=== PATIENT | female | born 1935 | race Caucasian/White ===

== ENCOUNTER → 2016-08-08 | Outpatient (CLI) | payer MEDICARE ==
[~2016-08-08] MED LIST: ALLO300T2 PO; CALC600T PO; CHOL2000 PO; DIPH25TA82 PO; FURO40TA4 PO; FURO80TA3 PO; ISM60TCR PO; KCL20TCR PO; LANS15CA PO; LEVO125T6 PO; METO25TA2 PO; MTF500T PO; MTL5T PO; MULT-1029 PO; RT-ALBUTEROL SULF 2.5 MG/3 ML PRE-MIX VIAL IH ONE; SIMV20TA3 PO; SPRN25T PO; WARF2TAB6 PO
== END ==
LOC: RT 11:28
PROVIDERS: ATTEND Internal Medicine Critical Care Medicine
DX: G47.30 Sleep apnea, unspecified (principal); R06.00 Dyspnea, unspecified
CPT/HCPCS: 94060; 94640; 94726; 94729

== ENCOUNTER 2016-08-24 20:20 | Outpatient (CLI) | payer MEDICARE ==
[~2016-08-24 20:20] MED LIST changes: -RT-ALBUTEROL SULF 2.5 MG/3 ML PRE-MIX VIAL IH ONE
== END 2016-08-25 06:30 | disposition home or self-care (01) ==
LOC: SLEEP 20:20
PROVIDERS: ATTEND Internal Medicine Critical Care Medicine
DX: G47.61 Periodic limb movement disorder (principal); G47.36 Sleep related hypoventilation in conditions classified elsewhere; R06.02 Shortness of breath
CPT/HCPCS: 95810

== ENCOUNTER → 2016-09-06 | Outpatient (CLI) | payer MEDICARE ==
[2016-09-06 11:53] LABS: CREATININE SERUM 1.47 MG/DL (0.60-1.30)
--- NOTE | 2016-09-06 12:28 | Diagnostic Imaging Report ---
PROCEDURE: CT chest without contrast. TECHNIQUE: Multiple contiguous axial images were obtained through the chest without the use of intravenous contrast. INDICATION: Shortness of breath. FINDINGS: There is a breathing motion artifact in the lungs and artifacts from pacemaker along the anterior left chest wall which could obscure subtle abnormalities. No significant emphysema changes and no evidence of interstitial lung disease. No significant consolidation, mass, or suspicious nodule is evident. The heart size is significantly enlarged with no findings of pulmonary edema. No pleural or pericardial effusion. 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 The thoracic aorta is ectatic with no aneurysm. There is no mediastinal mass or significantly enlarged lymph nodes. No definite mass abutting the unopacified hilar vessels. No axillary lymphadenopathy. There is a lrabp-oy-zxhkebhn hiatal hernia seen. Sections in the upper abdomen demonstrate cholecystectomy clips. There is a clip abutting the caudate lobe of the liver. The osseous structures demonstrate prominent scoliosis of the thoracic spine to the right side. IMPRESSION: Cardiomegaly with no evidence of vascular congestion or pulmonary edema. Dictated by: Dictated on workstation # [id number]
== END ==
LOC: RAD 11:17
PROVIDERS: ATTEND Nurse Practitioner Family
DX: R09.02 Hypoxemia (principal); R06.00 Dyspnea, unspecified; R94.2 Abnormal results of pulmonary function studies; I51.7 Cardiomegaly
CPT/HCPCS: 36415; 71250; 82565; 84520

== ENCOUNTER 2016-12-27 13:00 | Outpatient (RCR) | payer MEDICARE | END 2016-12-29 | disposition home or self-care (01) | LOC: PULM 13:00 | PROVIDERS: ATTEND Nurse Practitioner Family | DX: J44.9 Chronic obstructive pulmonary disease, unspecified (principal); Z53.9 Procedure and treatment not carried out, unspecified reason | CPT/HCPCS: 99211 ==

== ENCOUNTER → 2017-01-08 | Outpatient (CLI) | payer MEDICARE ==
[2017-01-08 11:53] LABS: CREATININE SERUM 1.3 MG/DL (0.60-1.30)
--- NOTE | 2017-01-08 14:35 | Diagnostic Imaging Report ---
EXAMINATION: Bilateral lower extremity duplex venous ultrasound. TECHNIQUE: DVT protocol. Multiple sonographic images with color Doppler and waveform interrogation were performed of the lower extremity veins, bilaterally, with compression and augmentation maneuvers. INDICATION: Bilateral leg edema. FINDINGS: The lower extremity veins from the common femoral veins to below the knee veins were examined with normal color-flow, compressibility and normal waveform demonstrated. The great saphenous vein bilaterally is patent. There is a 3.4 x 1.7 x 1.3 cm Pelaez's cyst on the left side. IMPRESSION: 1. No evidence of DVT in either lower extremity. 2. Small left Pelaez's cyst. Dictated by: Dictated on workstation # [id number]
--- NOTE | 2017-01-08 16:42 | Diagnostic Imaging Report ---
PROCEDURE: CT chest without contrast. TECHNIQUE: Multiple contiguous axial images were obtained through the chest without the use of intravenous contrast. INDICATION: COPD. Shortness of breath. COMPARISON: 09/06/2016. FINDINGS: There is a small amount of fluid along the right major fissure. Mild septal thickening is also seen in the mid and lower lung zones. This could relate to mild vascular congestion. No significant consolidation, mass or suspicious nodule is seen. The heart is markedly enlarged. There are cardiac leads of left chest wall pulse generator seen. The thoracic aorta is slightly ectatic without significant aneurysmal dilatation. There is no significantly enlarged mediastinal or axillary lymphadenopathy. There is a small to moderate-sized hiatal hernia. There is a sternotomy with early osseous bridging suggested. There is no significant pleural or pericardial effusion. Sections of the upper abdomen demonstrate hepatic low-attenuation lesion measuring 2.2 x 1.2 cm similar to 09/06/2016 exam and may relate to a hepatic cyst. The osseous structures demonstrate scoliotic curvature convex to the right and mild degenerative changes. IMPRESSION: There is marked cardiomegaly with findings of slight septal thickening and minimal fluid along the right major fissure, may relate to mild vascular congestion. Dictated by: Dictated on workstation # [id number]
== END ==
LOC: RAD 11:22
PROVIDERS: ATTEND Nurse Practitioner Family
DX: I51.7 Cardiomegaly (principal); M71.22 Synovial cyst of popliteal space [Baker], left knee; R22.43 Localized swelling, mass and lump, lower limb, bilateral; R09.02 Hypoxemia; R94.2 Abnormal results of pulmonary function studies
CPT/HCPCS: 36415; 71250; 82565; 84520; 93970

== ENCOUNTER 2017-02-19 13:00 | Outpatient (RCR) | payer MEDICARE | END 2017-04-01 | disposition home or self-care (01) | LOC: PULM 13:00 | PROVIDERS: ATTEND Nurse Practitioner Family | DX: J44.9 Chronic obstructive pulmonary disease, unspecified (principal) ==

== ENCOUNTER 2017-07-08 13:16 | Outpatient (RCR) | payer MEDICARE ==
[~2017-07-08] VITALS: Ht 165.1 cm; Wt 86.2 kg
[2017-07-08 13:20] VITALS: BP 150/70
[2017-08-06 13:00] VITALS: BP 122/76
[2017-08-06 13:43] VITALS: BP 119/70
[2017-08-08 13:00] VITALS: BP 138/68
[2017-08-08 14:00] VITALS: BP 138/68
[2017-08-13 12:45] VITALS: BP 130/72
[2017-08-13 14:00] VITALS: BP 118/60
[2017-08-15 12:55] VITALS: BP 132/80
[2017-08-15 14:02] VITALS: BP 136/76
[2017-08-20 12:40] VITALS: BP 100/62
[2017-08-20 13:35] VITALS: BP 120/60
[2017-08-22 13:00] VITALS: BP 120/70
[2017-08-22 14:00] VITALS: BP 115/60
[2017-09-05 13:00] VITALS: BP 125/60
[2017-09-05 13:52] VITALS: BP 130/70
[2017-09-24 13:00] VITALS: BP 116/60
[2017-09-24 14:00] VITALS: BP 130/70
[2017-09-26 12:55] VITALS: BP 120/60
[2017-09-26 13:55] VITALS: BP 135/50
[2017-10-08 13:00] VITALS: BP 130/70
[2017-10-08 14:00] VITALS: BP 112/60
[2017-11-14 12:50] VITALS: BP 148/50
[2017-11-14 13:55] VITALS: BP 130/40
== END 2017-10-06 | disposition home or self-care (01) ==
LOC: PULM 13:16
PROVIDERS: ATTEND Nurse Practitioner Family
DX: J44.9 Chronic obstructive pulmonary disease, unspecified (principal); R94.2 Abnormal results of pulmonary function studies; R09.02 Hypoxemia; R06.02 Shortness of breath

== ENCOUNTER 2017-12-03 13:00 | Outpatient (RCR) | payer MEDICARE ==
[2017-10-10 12:45] VITALS: BP 127/80
[2017-10-10 14:00] VITALS: BP 128/60
[2017-10-15 12:30] VITALS: BP 121/60
[2017-10-15 13:40] VITALS: BP 139/70
[2017-10-17 12:40] VITALS: BP 122/60
[2017-10-17 13:40] VITALS: BP 130/60
[2017-10-22 13:00] VITALS: BP 150/60
[2017-10-22 14:00] VITALS: BP 123/60
[2017-10-24 13:00] VITALS: BP 127/67
[2017-10-24 14:00] VITALS: BP 130/70
[2017-10-29 13:00] VITALS: BP 130/68
[2017-10-29 14:00] VITALS: BP 120/60
[2017-10-31 09:00] VITALS: BP 130/62
[2017-10-31 10:00] VITALS: BP 120/60
[2017-11-12 12:40] VITALS: BP 135/70
[2017-11-12 13:27] VITALS: BP 135/70
[2017-12-05 13:00] VITALS: BP 135/60
[2017-12-05 14:00] VITALS: BP 150/60
[2017-12-10 13:00] VITALS: BP 125/80
[2017-12-10 14:00] VITALS: BP 120/50
[2017-12-17 13:00] VITALS: BP 132/64
[2017-12-17 13:55] VITALS: BP 152/41
[2017-12-19 13:08] VITALS: BP 158/51
[2017-12-19 13:55] VITALS: BP 115/40
[2017-12-24 13:00] VITALS: BP 130/55
[2017-12-24 14:00] VITALS: BP 112/62
[2017-12-26 12:45] VITALS: BP 108/70
[2017-12-26 13:47] VITALS: BP 120/60
[2017-12-31 13:00] VITALS: BP 130/62
[2017-12-31 14:00] VITALS: BP 106/64
[2018-01-02 13:00] VITALS: BP 132/58
[2018-01-02 14:00] VITALS: BP 120/68
== END 2018-01-05 | disposition home or self-care (01) ==
LOC: PULM 13:00
PROVIDERS: ATTEND Nurse Practitioner Family
DX: J44.9 Chronic obstructive pulmonary disease, unspecified (principal); R94.2 Abnormal results of pulmonary function studies; R09.02 Hypoxemia; R06.02 Shortness of breath

== ENCOUNTER 2018-01-14 08:00 | Outpatient (RCR) | payer MEDICARE ==
[2018-01-14 13:00] VITALS: BP 132/58
[2018-01-14 14:00] VITALS: BP 120/68
[2018-01-23 13:00] VITALS: BP 140/60
[2018-01-23 13:59] VITALS: BP 123/60
[2018-01-28 13:00] VITALS: BP 128/80
[2018-01-28 14:00] VITALS: BP 120/62
[2018-01-30 13:00] VITALS: BP 120/78
[2018-01-30 14:00] VITALS: BP 128/80
[2018-02-04 13:00] VITALS: BP 158/50
[2018-02-04 14:00] VITALS: BP 130/60
[2018-02-13 13:00] VITALS: BP 128/80
[2018-02-13 14:05] VITALS: BP 122/82
[2018-02-27 13:17] VITALS: BP 130/80
[2018-02-27 14:00] VITALS: BP 122/60
== END 2018-04-14 | disposition home or self-care (01) ==
LOC: PULM 08:00
PROVIDERS: ATTEND Nurse Practitioner Family
DX: J44.9 Chronic obstructive pulmonary disease, unspecified (principal); R94.2 Abnormal results of pulmonary function studies; R09.02 Hypoxemia; R06.02 Shortness of breath

== ENCOUNTER → 2018-03-24 | Outpatient (CLI) | payer MEDICARE ==
[~2018-03-24] MED LIST changes: +RT-ALBUTEROL SULF 2.5 MG/3 ML PRE-MIX VIAL INH ONE
--- NOTE | 2018-03-24 11:59 | Diagnostic Imaging Report ---
PROCEDURE: CT chest without contrast. TECHNIQUE: Multiple contiguous axial images were obtained through the chest without the use of intravenous contrast. INDICATION: Shortness of breath. Correlation is made with prior CT chest from 01/08/2017. FINDINGS: Left chest wall cardiac pacemaker is again noted. Heart remains markedly enlarged. Extensive coronary arterial calcifications are present. No definite pericardial or pleural fluid is identified. No axillary lymphadenopathy is seen. Mildly prominent lymph nodes in the mediastinum, prevascular space and paratracheal location appear similar to prior CT. There are changes of median sternotomy noted. Lungs appear to be clear apart from some minimal linear atelectasis or scarring in the bilateral lower lobes. Upper abdomen appears stable. Cyst in the right lobe of the liver appears stable. IMPRESSION: Overall stable noncontrast CT of the chest when compared with study dating back 01/08/2017. No acute features detected. Dictated by: Dictated on workstation # [id number]
== END ==
LOC: RAD 10:43
PROVIDERS: ATTEND Nurse Practitioner Family
DX: J98.4 Other disorders of lung (principal); G47.34 Idiopathic sleep related nonobstructive alveolar hypoventilation
CPT/HCPCS: 71250; 94060; 94640; 94726; 94729

== ENCOUNTER → 2018-10-24 | Outpatient (CLI) | payer MEDICARE ==
[~2018-10-24] MED LIST changes: +CATHETER FLUSH 10 ML SYR IV PRN; -RT-ALBUTEROL SULF 2.5 MG/3 ML PRE-MIX VIAL INH ONE
--- NOTE | 2018-10-24 13:51 | Diagnostic Imaging Report ---
CLINICAL INDICATION: Patient is status post fall five weeks ago. Patient has pain near right upper back and right shoulder area. EXAM: Axial CT scan of the cervical spine performed without IV contrast. Sagittal and coronal reformatted images were created. COMPARISON: None. FINDINGS: There is motion artifact which greatly limits evaluation of the C1-C2 region. There is concern for possible nondisplaced fracture involving the right C2 lateral mass inferiorly which is best seen on coronal sequence, images 13 and 14. There is also concern for nondisplaced fracture involving the transverse process of the right C3 vertebral body which does not extend into the foramen transversalis. There is no other concern for fracture or dislocation seen on this exam. There are degenerative spurs seen throughout the cervical spine and mild facet arthropathy. There is suggestion of diffuse disc bulges with fpssxxbv-ug-baziuq loss of intervertebral disc height at the C4-C5, C5-C6, and C6-C7 levels. There are bilateral uncinate spurs at the C4-C5 level which causes moderate right neural foramen narrowing and mild right neural foramen narrowing at the C5-C6 level. There is mild central canal stenosis involving the C2-C3, C3-C4, and C4-C5 levels due to posterior disc bulges and suspected herniations. There is no significant neck soft tissue abnormality. Visualized upper lung bland are clear. IMPRESSION: 1: Limited exam due to motion artifact in the region of the C2 and C3 vertebra. 2: There is concern for possible nondisplaced fracture involving the anterior lateral mass of C2 vertebra which is best seen on the coronal sequence. 3: There is concern for a nondisplaced fracture of the C3 right transverse process which does not extend into the foramen transversalis. 4: Multilevel cervical spine degenerative disease. Report faxed to PA. Brayan [phone] at 1:52 p.m. 10/24/2018/cb Dictated by: Dictated on workstation # [id number]
--- NOTE | 2018-10-24 13:52 | Diagnostic Imaging Report ---
CLINICAL INDICATION: Patient is status post fall x5 weeks ago. Patient has pain in the right upper back and right shoulder area. EXAM: Axial CT scan of the thoracic and lumbar spine performed without IV contrast. Sagittal and coronal reformations were performed. Bone and soft tissue windows were created. Auto Exposure Controls were utilized during the CT exam to meet ALARA standards for radiation dose reduction. COMPARISON: CT scan of the thoracic spine dated 03/24/2018. FINDINGS: There is a nondisplaced fracture involving the right T5 and right T6 transverse process. There is concern for nondisplaced fracture involving the medial posterior aspect of the right T4 rib with minimal cortical irregularity seen. There is concern for possible fracture at the medial aspect of the left T5 rib which is of unknown age with bony thickening seen in the region. There are old healed fractures of the medial aspect of the left T2 rib. There is old healed fracture of the posterior right T2 rib. There is right curvature of the thoracic spine. There is a roughly 50% burst fracture involving the T5 vertebra with very minimal posterior vertebral body convexity. There is no significant central canal narrowing. There is at least moderate left T6-T7 neural foramen narrowing and mild right T6-T7 neural foramen narrowing. There is no other concern for thoracic or lumbar spine fracture. There is subtle grade 1 anterolisthesis of L3 on L4 and L4 on L5. There is vertebral body spur seen throughout the thoracic and lumbar spine. There is lower lumbar spine facet arthropathy. There is moderate bilateral neural foramen narrowing at the L2-L3, L3-L4, and L4-L5 levels with facet arthropathy and diffuse disc bulges. There is prominence of the bilateral pulmonary arteries which may be seen with pulmonary congestion. There is suspected atelectasis or scarring in both lung bases. There is cardiomegaly. IMPRESSION: 1: Interval development of a roughly 50% mild burst fracture involving the T5 vertebra with no significant central canal narrowing. There is sclerosis involving this vertebra. Unknown if this is chronic or subacute. MRI of the thoracic spine would better evaluate for chronicity if this is not a known finding. 2: There are nondisplaced fractures involving the right T5 and right T6 transverse processes. 3: There is concern for nondisplaced fracture involving the medial posterior aspect of the right T4 rib with minimal cortical irregularity seen. 4: Possible fracture of unknown age involving the medial aspect of the left T5 rib. 5: There is grade 1 anterolisthesis of L3 on L4 and L4 on L5. Report faxed to AAYUSH Schmidt, at 1:52 p.m. 10/24/2018/cb Dictated by: Dictated on workstation # [id number]
--- NOTE | 2018-10-24 17:09 | Diagnostic Imaging Report ---
INDICATION: Status post fall 5 weeks ago, hurt mid back to the right side area. TECHNIQUE: The patient was administered 26.6 mCi technetium 99m MDP. Anterior and posterior whole-body planar images are obtained. CORRELATION STUDY: CT thoracic and lumbar spine 10/24/2018. FINDINGS: There is abnormal uptake about the superior aspect of thoracic spine. This likely corresponds to the recently identified T5 burst fracture. There is some nodular uptake along the right paraspinal region at the presumed costovertebral margins on the right as well particularly the T4, T5 and T6 level. Findings suspect for nondisplaced fracture near the transverse process or perhaps central posterior ribs. Less severe uptake T7, T8, T9, T10 level along the right paraspinal region as well. There is pronounced uptake which appears superimposed over the expected location of the medial left clavicle. Less severe uptake over the right sternoclavicular region. The remainder of the bone scan is otherwise unremarkable. Uptake about the kidneys with excretion into the urinary bladder. IMPRESSION: 1. Pronounced abnormal uptake at the superior thoracic spine likely corresponds to the T5 burst fracture. Additional uptake along the right paraspinal region most pronounced at the approximately T4, T5 and T6 level, may reflect uptake at perhaps transverse process or central posterior rib fractures. 2. Pronounced uptake over the medial left chest may be over the region of the medial clavicular head or first rib region. Correlation for symptoms in this area. Dictated by: Dictated on workstation # [id number]
== END ==
LOC: CARD 10:53
PROVIDERS: ATTEND Physician Assistant
DX: S22.051A Stable burst fracture of T5-T6 vertebra, initial encounter for closed fracture (principal); M43.16 Spondylolisthesis, lumbar region; M51.36 Other intervertebral disc degeneration, lumbar region; M50.31 Other cervical disc degeneration, high cervical region; W19.XXXA Unspecified fall, initial encounter
CPT/HCPCS: 72125; 72128; 72131; 78306

== ENCOUNTER 2018-12-02 11:03 | Emergency (ER) | payer MEDICARE ==
[~2018-12-02] VITALS: Ht 162.6 cm; Wt 83.9 kg
[~2018-12-02 11:03] MED LIST changes: -CATHETER FLUSH 10 ML SYR IV PRN
--- NOTE | 2018-12-02 11:20 | ED Dyspnea ---
General Stated Complaint: CANT BREATH CORRECTLY Source of Information: Patient Exam Limitations: No Limitations History of Present Illness Date Seen by Provider: Dec 02, 2018 Time Seen by Provider: 11:19 Initial Comments To ER per private vehicle with reports of shortness of breath. She awakened this morning with shortness of breath. History of COPD. She hasn't been using her breathing treatments at home as prescribed because of rib pain secondary to falls within the past couple of months. Denies any head. She is also on warfarin for a prosthetic mitral valve. She wears oxygen at 3 L [id number]-[id number]-lrtnu. She de nies fevers chills or chest pain Timing/Duration: 24 Hours Severity: Moderate Prior Episodes/Possible Cause: No Prior Episodes Associated Symptoms: Denies Symptoms Allergies and Home Medications Allergies Coded Allergies: Oxycodone (Unverified Allergy, Severe, ANAPHYLAXIS, 09/15/13) hydrocortisone (Unverified Allergy, Intermediate, 09/15/13) Home Medications Allopurinol 300 Mg Tab, 300 MG PO DAILY, (Reported) Calcium Carbonate 600 Mg Tablet, 600 MG PO DAILY, (Reported) Cholecalciferol 2,000 Unit Capsule, 2,000 UNIT PO DAILY, (Reported) Diphenhydramine Hcl 25 Mg Tablet, 25 MG PO DAILY PRN for ITCHING, (Reported) Furosemide 40 Mg Tablet, 40 MG PO SAT, SAT, , SAT, (Reported) Furosemide 80 Mg Tablet, 80 MG PO SAT, SAT, SAT, (Reported) Isosorbide Mononitrate 60 Mg Tab.sr.24h, 60 MG PO DAILY, (Reported) Lansoprazole 15 Mg Capsule.dr, 15 MG PO DAILY, (Reported) Levothyroxine Sodium 125 Mcg Tablet, 125 MCG PO DAILY, (Reported) Metformin Hcl 500 Mg Tablet, 500 MG PO BID WITH MEALS, (Reported) Metolazone 5 Mg Tab, 5 MG PO , SAT, (Reported) Metoprolol Tartrate 25 Mg Tablet, 50 MG PO BID, (Reported) TAKE 2 (25 MG) TABLETS TWICE DAILY Mu-Vits-Min // 1 Each Tablet, 1 TAB PO DAILY, (Reported) Potassium Chloride 20 Meq Tab.prt.sr, 40 MEQ PO BID ON SAT, SAT, SAT, (Reported) Potassium Chloride 20 Meq Tab.prt.sr, 20 MEQ PO BID, (Reported) TAKE 1 TABLET TWICE DAILY ON SAT, SAT, , SAT Simvastatin 20 Mg Tablet, 20 MG PO HS, (Reported) Spironolactone 25 Mg Tab, 25 MG PO DAILY, (Reported) Warfarin Sodium 2 Mg Tablet, 2 MG PO DAILY, (Reported) Patient Home Medication List Home Medication List Reviewed: Yes Review of Systems Review of Systems Constitutional: see HPI; No chills, No fever EENTM: see HPI Respiratory: see HPI, cough, short of breath Cardiovascular: no symptoms reported; No chest pain Genitourinary: no symptoms reported Musculoskeletal: no symptoms reported Skin: no symptoms reported Psychiatric/Neurological: No Symptoms Reported Endocrine: No Symptoms Reported Past Neowfdm-Vmydxq-Hkvfwz Hx Patient Social History Recent Foreign Travel: No Contact w/Someone Who Travel: No Immunizations Up To Date Date of Pneumonia Vaccine: Oct 31, 2007 Past Medical History Pneumonia Reproductive Disorders: Yes (PARTIAL HYSTERECTOMY) Abdominal Hernia, Gastroesophageal Reflux, Gastrointestinal Bleed, Diverticulosis, Hiatal Hernia, Ulcer, Gall Bladder Disease Scoliosis Hypothyroidsim, Diabetes, Non-Insulin dep Cataract Sleep Difficulties Eczema, Pruritis Family Medical History Congestive heart failure 19 FATHER Family history: Cardiovascular disease 19 FATHER Family history: Hypertension 19 FATHER Stroke 19 FATHER No Pertinent Family Hx Physical Exam Vital Signs Vital Signs - First Documented 12/02/18 11:05 Temp 98.8 Pulse 68 Resp 30 B/P (MAP) 166/80 (108) Pulse Ox 93 O2 Delivery Nasal Cannula O2 Flow Rate 3.00 Capillary Refill : Height, Weight, BMI Height: 5'5.00" Weight: 191lbs. 0.2oz. 81.486846xd; 30.0 BMI Method: General Appearance: No Apparent Distress, WD/WN, Other (dyspneic appearing) HEENT: PERRL/EOMI, TMs Normal Neck: Full Range of Motion, Normal Inspection Respiratory: No Accessory Muscle Use, No Respiratory Distress, Decreased Breath Sounds Cardiovascular: Regular Rate, Rhythm, Normal Peripheral Pulses, Systolic Murmur Gastrointestinal: Normal Bowel Sounds, Non Tender, Soft Extremity: Normal Capillary Refill, Normal Inspection Neurologic/Psychiatric: Alert, Oriented x3 Skin: Normal Color, Warm/Dry Focused Exam Lactate Level 12/02/18 11:20: Lactic Acid Level 1.35 Lactic Acid Level Laboratory Tests Test 12/02/18 11:20 Lactic Acid Level 1.35 MMOL/L (0.50-2.00) Progress/Results/Core Measures Results/Orders Lab Results Laboratory Tests Test 12/02/18 11:20 Range/Units White Blood Count 13.8 H 4.3-11.0 10^3/uL Red Blood Count 3.47 L 4.35-5.85 10^6/uL Hemoglobin 11.4 L 11.5-16.0 G/DL Hematocrit 37 35-52 % Mean Corpuscular Volume 106 H 80-99 FL Mean Corpuscular Hemoglobin 33 25-34 PG Mean Corpuscular Hemoglobin Concent 31 L 32-36 G/DL Red Cell Distribution Width 14.9 H 10.0-14.5 % Platelet Count 224 130-400 10^3/uL Mean Platelet Volume 10.1 7.4-10.4 FL Neutrophils (%) (Auto) 83 H 42-75 % Lymphocytes (%) (Auto) 6 L 12-44 % Monocytes (%) (Auto) 10 0-12 % Eosinophils (%) (Auto) 1 0-10 % Basophils (%) (Auto) 0 0-10 % Neutrophils # (Auto) 11.5 H 1.8-7.8 X 10^3 Lymphocytes # (Auto) 0.8 L 1.0-4.0 X 10^3 Monocytes # (Auto) 1.3 H 0.0-1.0 X 10^3 Eosinophils # (Auto) 0.2 0.0-0.3 10^3/uL Basophils # (Auto) 0.1 0.0-0.1 10^3/uL Prothrombin Time 26.0 H 12.2-14.7 SEC INR Comment 2.3 H 0.8-1.4 Sodium Level 142 135-145 MMOL/L Potassium Level 3.9 3.6-5.0 MMOL/L Chloride Level 96 L 98-107 MMOL/L Carbon Dioxide Level 38 H 21-32 MMOL/L Anion Gap 8 5-14 MMOL/L Blood Urea Nitrogen 33 H 7-18 MG/DL Creatinine 1.46 H 0.60-1.30 MG/DL Estimat Glomerular Filtration Rate 34 BUN/Creatinine Ratio 23 Glucose Level 123 H 70-105 MG/DL Lactic Acid Level 1.35 0.50-2.00 MMOL/L Calcium Level 9.6 8.5-10.1 MG/DL Corrected Calcium 9.5 8.5-10.1 MG/DL Total Bilirubin 2.0 H 0.1-1.0 MG/DL Aspartate Amino Transf (AST/SGOT) 18 5-34 U/L Alanine Aminotransferase (ALT/SGPT) 23 0-55 U/L Alkaline Phosphatase 76 40-136 U/L B-Type Natriuretic Peptide 404.5 H <100.0 PG/ML Total Protein 6.5 6.4-8.2 GM/DL Albumin 4.1 3.2-4.5 GM/DL My Orders Orders - PETER VÁSQUEZ [employer]TING CONTROL CLERK Cbc With Automated Diff (12/02/18 11:17) Comprehensive Metabolic Panel (12/02/18 11:17) BNP (12/02/18 11:17) Thyroid Stimulating Hormone (12/02/18 11:17) Troponin I (12/02/18 11:17) Chest 1 View, Ap/Pa Only (12/02/18 11:17) Ekg Tracing (12/02/18 11:17) Protime With Inr (12/02/18 11:17) Albuterol/Ipra Inhalation Soln (Duoneb I (12/02/18 11:30) Svn Small Volume Nebulizer (12/02/18 11:17) Blood Culture (12/02/18 11:21) Lactic Acid Analyzer (12/02/18 11:21) Manual Differential (12/02/18 11:20) Methylprednisolone Sod Succ (Solu-Medrol (12/02/18 12:00) Medications Given in ED Current Medications Medications Dose Ordered Sig/Azalea Route Start Time Stop Time Status Last Admin Dose Admin Albuterol/ Ipratropium 3 ml ONCE ONCE INH 12/02/18 11:30 12/02/18 11:31 DC 12/02/18 11:33 3 ML Methylprednisolone Sodium Succinate 125 mg ONCE ONCE IVP 12/02/18 12:00 12/02/18 12:01 DC 12/02/18 11:59 125 MG Vital Signs/I&O 12/02/18 12/02/18 11:05 11:30 Temp 98.8 Pulse 68 Resp 30 B/P (MAP) 166/80 (108) Pulse Ox 93 97 O2 Delivery Nasal Cannula Nasal Cannula O2 Flow Rate 3.00 3.00 Departure Communication (Admissions) 1151-better air movement and feeling better after the breathing treatment. Impression Primary Impression: COPD exacerbation Disposition: HOME, SELF-CARE Condition: Improved Departure-Patient Inst. Decision time for Depature: 12:12 Referrals: PATTI CALDERON DO (PCP/Family) Primary Care Physician Patient Instructions: Exacerbation of COPD Add. Discharge Instructions: 1. Use her nebulizer every 4 hours 2. Steroids as directed starting this evening 3. Antibiotics as directed starting today. Follow-up with Dr. Calderon or your lung doctor later this week. Return to ER for any worsening. Scripts Cefuroxime Axetil (Cefuroxime) 250 Mg Tablet 250 MG PO BID, #10 TAB Prov: PETER VÁSQUEZ APRN 12/02/18 Prednisone (Prednisone) 20 Mg Tab 40 MG PO DAILY, #8 TAB 0 Refills Prov: PETER VÁSQUEZ APRN 12/02/18 PETER VÁSQUEZ APRN Dec 02, 2018 11:20
[2018-12-02] MEDS ORDERED: RT-ALBUTEROL/IPRATROPIUM 3 ML (DUONEB) VIAL INH ONE (11:30)
[2018-12-02 11:36] LABS: BASOPHILS # (AUTO) 0.1 10^3/uL (0.0-0.1); BASOPHILS % (AUTO) 0 % (0-10); EOSINOPHILS # (AUTO) 0.2 10^3/uL (0.0-0.3); EOSINOPHILS % (AUTO) 1 % (0-10); HEMATOCRIT 37 % (35-52); HEMOGLOBIN 11.4 G/DL (11.5-16.0); LYMPHOCYTES # (AUTO) 0.8 X 10^3 (1.0-4.0); LYMPHOCYTES % (AUTO) 6 % (12-44); MEAN CORPUSCULAR HEMOGLOBIN 33 PG (25-34); MEAN CORPUSCULAR HGB CONC 31 G/DL (32-36); MEAN CORPUSCULAR VOLUME 106 FL (80-99); MEAN PLATELET VOLUME 10.1 FL (7.4-10.4); MONOCYTES # (AUTO) 1.3 X 10^3 (0.0-1.0); MONOCYTES % (AUTO) 10 % (0-12); NEUTROPHILS # (AUTO) 11.5 X 10^3 (1.8-7.8); NEUTROPHILS % (AUTO) 83 % (42-75); PLATELET COUNT 224 10^3/uL (130-400); RED CELL DISTRIBUTION WIDTH 14.9 % (10.0-14.5); WHITE BLOOD COUNT 13.8 10^3/uL (4.3-11.0)
[2018-12-02 11:47] LABS: INR 2.3 (0.8-1.4)
[2018-12-02 11:54] LABS: ALBUMIN 4.1 GM/DL (3.2-4.5); CALCIUM 9.6 MG/DL (8.5-10.1); CREATININE SERUM 1.46 MG/DL (0.60-1.30); POTASSIUM 3.9 MMOL/L (3.6-5.0); TOTAL PROTEIN 6.5 GM/DL (6.4-8.2)
[2018-12-02] MEDS ORDERED: methylPREDNISolone 125 MG (Solu-MEDROL) VIAL IVP ONE (12:00)
--- NOTE | 2018-12-02 12:05 | Diagnostic Imaging Report ---
PATIENT HISTORY: Shortness of air. History of COPD. TECHNIQUE: Frontal view of the chest. COMPARISON: 09/17/2013. FINDINGS: Lung volumes are large. Mild airspace opacities are seen in the right lung base and appear stable since 2013. There is cardiomegaly. Sternotomy wires are noted. There is moderate right convex curvature of the thoracic spine. The pacemaker leads appear stable. No pneumothorax or pleural effusion is seen. IMPRESSION: 1. Mild airspace opacities in right lung base appear stable since 2013, likely chronic scarring. No new consolidation is seen. 2. Findings consistent with history of COPD. Cardiomegaly. Dictated by: Dictated on workstation # [id number]
[2018-12-02 12:12] LABS: BAND NEUTROPHILS 2 %; LYMPHOCYTES % (MANUAL) 3 %; MONOCYTES % (MANUAL) 6 %; NEUTROPHILS % (MANUAL) 89 %; RBC MORPH NORMAL
[2018-12-02] MEDS ORDERED: CEFU250T80 PO (12:13)
[2018-12-02] MEDS ORDERED: PRD20T PO (12:13)
[2018-12-02 13:55] VITALS: BP 141/69
== END 2018-12-02 13:55 | disposition home or self-care (01) ==
LOC: EDUNIT# 11:03 → ER 11:04
DX: J44.1 Chronic obstructive pulmonary disease with (acute) exacerbation (principal); K21.9 Gastro-esophageal reflux disease without esophagitis; E03.9 Hypothyroidism, unspecified; E11.9 Type 2 diabetes mellitus without complications; Z87.19 Personal history of other diseases of the digestive system; Z79.01 Long term (current) use of anticoagulants; Z99.81 Dependence on supplemental oxygen; Z88.5 Allergy status to narcotic agent; Z88.8 Allergy status to other drugs, medicaments and biological substances; Z90.710 Acquired absence of both cervix and uterus; Z82.49 Family history of ischemic heart disease and other diseases of the circulatory system
CPT/HCPCS: 36415; 71045; 80053; 83605; 83880; 84443; 84484; 85007; 85027; 85610; 87040; 93005; 94640

== ENCOUNTER → 2018-12-11 | Outpatient (CLI) | payer MEDICARE ==
[~2018-12-11] MED LIST changes: +ACID1TAB5 PO; +ALBU2.5V4 NEB; +CEFU250T80 PO; +CETI10TA17 PO; +CHOL20003 PO; +CHOL4PAC3 PO; +DIPH25CA79 PO; +FLUT1DIS26 IH; +HYDR-3812 PO; +LEVO112T55 PO; +METO-333 PO; +MONT10TA24 PO; +MULT-1067 PO; +PANT40TA3 PO; +PRD10T PO; +PRD20T PO; +SITA50TA PO; +SPIR25TA5 PO; +SUCR1TAB PO; +TIOT18CA2 IH; +WARF1TAB82 PO; +[UNRECOGNIZED DRUG - REMARK] SL
--- NOTE | 2018-12-11 17:46 | Diagnostic Imaging Report ---
PROCEDURE: CT chest without contrast. TECHNIQUE: Multiple contiguous axial images were obtained through the chest without the use of intravenous contrast. Auto Exposure Controls were utilized during the CT exam to meet ALARA standards for radiation dose reduction. INDICATION: "Lung checkup". Study compared 03/24/2018. FINDINGS: Atherosclerotic vascular calcifications, cardiomegaly and pacemaker device are unchanged. There is a moderate hiatal hernia unchanged. Previous sternotomy is healed. Since the previous exam there has been development of subacute fractures on the left at the fifth and sixth levels. No pleural effusion or pneumothorax. There is cardiomegaly and vascular congestion. There is some groundglass pulmonary opacity and septal thickening. A mild degree of edema is suspected. Correlate for failure or hypervolemia. No evidence for focal pneumonia. No soft tissue density or lung mass. No findings of adenopathy. IMPRESSION: Healing subacute left rib fractures. Intact sternotomy. Cardiomegaly. Vascular congestion and probable mild interstitial edema with chronic hiatal hernia and no mass or adenopathy. Dictated by: Dictated on workstation # [id number]
== END ==
LOC: RAD 16:36
PROVIDERS: ATTEND Internal Medicine Critical Care Medicine
DX: J44.9 Chronic obstructive pulmonary disease, unspecified (principal); G47.30 Sleep apnea, unspecified; S22.32XD Fracture of one rib, left side, subsequent encounter for fracture with routine healing; K44.9 Diaphragmatic hernia without obstruction or gangrene; R09.89 Other specified symptoms and signs involving the circulatory and respiratory systems
CPT/HCPCS: 71250

== ENCOUNTER 2018-12-15 12:11 | Inpatient (IN) | payer MEDICARE ==
[~2018-12-15] VITALS: Ht 162.6 cm; Wt 81.2 kg
[~2018-12-15 12:11] MED LIST changes: -ACID1TAB5 PO; -ALBU2.5V4 NEB; -CETI10TA17 PO; -CHOL20003 PO; -CHOL4PAC3 PO; -DIPH25CA79 PO; -FLUT1DIS26 IH; -HYDR-3812 PO; -LEVO112T55 PO; -LEVO250T46 PO; -METO-333 PO; -MONT10TA24 PO; -MULT-1067 PO; -PANT40TA3 PO; -PRD10T PO; -SERT25TA PO; -SITA50TA PO; -SPIR25TA5 PO; -SUCR1TAB PO; -TIOT18CA2 IH; -WARF1TAB82 PO; -[UNRECOGNIZED DRUG - REMARK] SL
[2018-12-15 13:01] VITALS: BP 149/77
--- NOTE | 2018-12-15 13:02 | NUR ---
Dr Cook notified of cardiology consult
[2018-12-15 13:10] LABS: BASOPHILS % (AUTO) 0 % (0-10); EOSINOPHILS # (AUTO) 0.1 10^3/uL (0.0-0.3); EOSINOPHILS % (AUTO) 1 % (0-10); HEMATOCRIT 33 % (35-52); HEMOGLOBIN 10.4 G/DL (11.5-16.0); LYMPHOCYTES # (AUTO) 0.3 X 10^3 (1.0-4.0); LYMPHOCYTES % (AUTO) 2 % (12-44); MEAN CORPUSCULAR HEMOGLOBIN 33 PG (25-34); MEAN CORPUSCULAR HGB CONC 32 G/DL (32-36); MEAN CORPUSCULAR VOLUME 104 FL (80-99); MONOCYTES # (AUTO) 0.7 X 10^3 (0.0-1.0); MONOCYTES % (AUTO) 5 % (0-12); NEUTROPHILS % (AUTO) 93 % (42-75); PLATELET COUNT 206 10^3/uL (130-400); RED CELL DISTRIBUTION WIDTH 14.5 % (10.0-14.5); WHITE BLOOD COUNT 15.1 10^3/uL (4.3-11.0)
[2018-12-15 13:11] LABS: ABG BASE EXCESS 9.4 MMOL/L (-2.5-2.5); ABG OXYGEN SATURATION 96 % (94-100); ABG PCO2 42 MMHG (35-45); ABG PH 7.51 (7.37-7.43); ABG PO2 72 MMHG (79-93); ABG TCO2 34.4 MMOL/L (21.0-31.0)
[2018-12-15 13:14] LABS: ALLENS TEST YES-POS; INSPIRED O2 3.5L; PATIENT TEMP 36.7; VENTILATOR NO
--- NOTE | 2018-12-15 13:21 | Diagnostic Imaging Report ---
INDICATION: CHF. TIME OF EXAM: 1:10 p.m. COMPARISON: Correlation is made with prior study from 12/02/2018. FINDINGS: The heart is enlarged but stable. There are changes of median sternotomy. Cardiac pacemaker remains in place. Congestive changes have developed in both lungs when compared with prior study. Central vascularity has increased in prominence. Interstitial markings in the bases are more prominent. No effusion or pneumothorax is seen. IMPRESSION: Development of congestive changes when compared with prior study from 12/02/2018. Dictated by: Dictated on workstation # [id number]
[2018-12-15 13:27] LABS: ALBUMIN 3.6 GM/DL (3.2-4.5); BILIRUBIN,TOTAL 1.8 MG/DL (0.1-1.0); CALCIUM 9.5 MG/DL (8.5-10.1); CREATININE SERUM 1.15 MG/DL (0.60-1.30); MAGNESIUM 2.1 MG/DL (1.6-2.4); PHOSPHORUS 2.8 MG/DL (2.3-4.7); POTASSIUM 3.7 MMOL/L (3.6-5.0); TOTAL PROTEIN 6.1 GM/DL (6.4-8.2)
[2018-12-15 13:36] LABS: BAND NEUTROPHILS 6 %; BASOPHILS % (MANUAL) 0 %; EOSINOPHILS % (MANUAL) 1 %; LYMPHOCYTES % (MANUAL) 1 %; MONOCYTES % (MANUAL) 7 %; NEUTROPHILS % (MANUAL) 85 %
[2018-12-15 13:37] LABS: POLYCHROMASIA SLIGHT
--- NOTE | 2018-12-15 13:37 | NUR ---
PAIGE ELLISON admitted to room 402-1, with an admitting diagnosis of CHF exacterbation snf hypoxia, on 12/15/[address] martinez's office/ direct admit, accompanied by family and staff.PAIGE ELLISON introduced to surroundings, call light, bed controls, phone, TV, temperature control, lights, meal times, smoking policy, visitor policy, side rail policy, bathrooms and showers.PAIGE ELLISON verbalizes understanding that [facility] is not responsible for the loss or damage to any personal effects or valuables that are kept in the patients posession during their hospitalization. PAIGE ELLISON verbalizes understanding of Interdisciplinary Patient Education. Patient and/or family were informed about the Rapid Response Team and its purpose.
[2018-12-15 13:38] LABS: TOXIC GRANULATION/VACUOLAZATIO 1+
[2018-12-15 13:41] LABS: INR 2.5 (0.8-1.4); PROTHROMBIN TIME PATIENT 28.5 SEC (12.2-14.7)
--- NOTE | 2018-12-15 13:56 | Physical Therapy Evaluation ---
PT Evaluation-General Medical Diagnosis Admission Date Dec 15, 2018 at 12:34 Medical Diagnosis: CHF exacerbation Onset Date: Dec 15, 2018 Therapy Diagnosis Therapy Diagnosis: debility/weakness Height/Weight Height (Feet): 5 Height (Inches): 4.00 Weight (Pounds): 185 Weight (Ounces): 0.2 Precautions Precautions/Isolations: Fall Prevention, Standard Precautions Weight Bear Status Right Lower Extremity: Right Full Weight Bearing Left Lower Extremity: Left Full Weight Bearing Referral Physician: Kane Reason for Referral: Evaluation/Treatment Medical History Pertinent Medical History: COPD, DM, Hypothroidism Current History direct admit from Dr. Sandra's office secondary to CHF Reviewed History: Yes Social History Home: Assisted Living Entry Into Home: Level Entry Prior/Core FIM Prior Level of Function Therapy Code Descriptions/Definitions Functional [place] Measure: 0=Not Assessed/NA 4=Minimal Assistance 1=Total Assistance 5=Supervision or Setup 2=Maximal Assistance 6=Modified [place] 3=Moderate Assistance 7=Complete [place] Therapy Quality Codes: 6 Independent with activity with or without an assistive device 5 Patient requires set up or clean up by helper. Patient completes activity by themselves 4 Supervision or touching assist (CGA). [place] provide cues , steadying assist 3 The helper provides less than half the effort to complete the activity 2 The helper provides more than half the effort to complete the activity 1 Dependent. The helper does all the effort to complete an activity 7 Patient refused to complete or attempt activity 9 The patient did not perform the activity before the current illness or injury 88 Not attempted due to Medical conditions or safety concerns Functional Abilities and Goals: Independent: Patient completed the activities by him/herself, with or without an assistive device, with no assistance from a helper. Needed Some Help: Patient needed partial assistance from another person to complete activities. Dependent: A helper completed the activities for the patient. Unknown: Not Applicable: Bed Mobility: 6 Transfers (B,C,W/C) (FIM): 6 Gait: 6 Indoor Mobility (Ambulation): Independent Stairs: Not Applicalbe Prior Devices Use: Walker PT Evaluation-Current Subjective Patient reports she is having a difficulty breathing. Reluctantly agrees to PT. Pain Numeric Pain Scale: 0-No Pain Location: No Pain Reported Objective Patient Orientation: Normal For Age Problem Solving: Fair Attachments: Oxygen (4L O2 NC) ROM/Strength ROM Lower Extremities bilateral LE WFL Strength Lower Extremities 4-/5 grossly bilateral LE Integumentary/Posture Integumentary refer to nursing notes Bowel Incontinence: No Bladder Incontinence: No Posture scoliosis Neuromuscular (Tone, Coordination, Reflexes) grossly intact Sensory Vision: Wears Glasses Hearing: Functional Sensation Right Lower Extremit: Impaired Sensation Left Lower Extremity: Impaired Transfers Therapy Code Descriptions/Definitions Functional [place] Measure: 0=Not Assessed/NA 4=Minimal Assistance 1=Total Assistance 5=Supervision or Setup 2=Maximal Assistance 6=Modified [place] 3=Moderate Assistance 7=Complete [place] Transfers (B, C, W/C) (FIM): 5 Scootin Rollin Supine to/from Sit: 5 Sit to/from Stand: 5 Gait Mode of Locomotion: Walk Anticipated Mode of Locomotion: Walk Gait (FIM): 2 Distance (FIM): 0=225-29 ft Distance: 50' Gait Level of Assist: 5 Gait Assistive Device: FWW Comments/Gait Description steady gait sequence with FWW Balance Sitting Static: Normal Sitting Dynamic: Normal Standing Static: Normal Standing Dynamic: Normal Assessment/Needs Noted increase SOA with minimal activity. 83 y.o. female, will be seen by skilled PT to address functional mobility/pulmonary function to improve current LOF to safely return to AL at maximum LOF. Patient has history of multiple falls from O2 tubing and LOB prior to AL admit. Rehab Potential: Fair PT Quality Improvement Consultant Goals Mcc Goals PT Quality Improvement Consultant Goals Time Frame: Dec 24, 2018 Transfers (B,C,W/C) (FIM): 6 Gait (FIM): 6 Gait distance (FIM): 3=150 ft Distance: 150' Gait Level of Assist: 6 Gait Assistive Device: FWW PT Plan Problem List Problem List: Activity Tolerance Treatment/Plan Treatment Plan: Continue Plan of Care Treatment Plan: Bed Mobility, Education, Functional Activity Autumn, Functional Strength, Gait, Safety, Therapeutic Exercise, Transfers Treatment Duration: Dec 24, 2018 Frequency: 6 times per week Estimated Hrs Per Day: .25 hour per day Patient and/or Family Agrees t: Yes Discharge Recommendations Therapy Discharge Recommendati: Assisted Living Time/GCodes Time In: 1325 Time Out: 1342 Total Billed Treatment Time: 17 Total Billed Treatment 1 visit EVModC 17 min PHILLIP STONE PT Dec 15, 2018 13:56
[2018-12-15] MEDS ORDERED: RT-ALBUTEROL/IPRATROPIUM 3 ML (DUONEB) VIAL IH PRN (14:00)
[2018-12-15] MEDS ORDERED: CATHETER FLUSH 10 ML SYR IV PRN (14:00)
[2018-12-15] MEDS: KCL 20 MEQ TAB (K-DUR) PO SCH (14:34)
[2018-12-15] MEDS: FUROSEMIDE 40 MG/4 ML INJ (LASIX) IV SCH (14:34)
[2018-12-15] MEDS: ENOXAPARIN 40 MG/0.4 ML (LOVENOX) SYR SC SCH (14:34)
[2018-12-15] MEDS: CATHETER FLUSH 10 ML SYR IV SCH ×2 (14:35→20:41)
[2018-12-15] MEDS: RT-ALBUTEROL/IPRATROPIUM 3 ML (DUONEB) VIAL IH SCH ×3 (15:09→22:08)
[2018-12-15 15:52] VITALS: BP 135/71
[2018-12-15] MEDS ORDERED: CEFU250T80 PO (16:31)
[2018-12-15] MEDS ORDERED: LEVO112T55 PO (16:31)
[2018-12-15] MEDS ORDERED: CHOL20003 PO (16:31)
[2018-12-15] MEDS ORDERED: DIPH25CA79 PO (16:31)
[2018-12-15] MEDS ORDERED: ACID1TAB5 PO (16:31)
[2018-12-15] MEDS ORDERED: ALBU2.5V4 NEB (16:31)
[2018-12-15] MEDS ORDERED: TIOT18CA2 IH (16:31)
[2018-12-15] MEDS ORDERED: FURO80TA3 PO (16:31)
[2018-12-15] MEDS ORDERED: FLUT1DIS26 IH (16:31)
[2018-12-15] MEDS ORDERED: CETI10TA17 PO (16:31)
[2018-12-15] MEDS ORDERED: SPIR25TA5 PO (16:31)
[2018-12-15] MEDS ORDERED: MULT-1067 PO (16:31)
[2018-12-15] MEDS ORDERED: SUCR1TAB PO (16:32)
[2018-12-15] MEDS ORDERED: [UNRECOGNIZED DRUG - REMARK] SL (16:32)
[2018-12-15] MEDS ORDERED: WARF1TAB82 PO ×2 (16:32)
[2018-12-15] MEDS ORDERED: METO-333 PO (16:32)
[2018-12-15] MEDS ORDERED: MONT10TA24 PO (16:32)
[2018-12-15] MEDS ORDERED: SITA50TA PO (16:32)
[2018-12-15] MEDS ORDERED: HYDR-3812 PO (16:32)
[2018-12-15] MEDS ORDERED: PANT40TA3 PO (16:32)
[2018-12-15] MEDS ORDERED: CHOL4PAC3 PO (16:32)
[2018-12-15] MEDS ORDERED: PRD10T PO (16:32)
--- NOTE | 2018-12-15 16:36 | NUR ---
UPDATED MED REC WITH MAR FROM [facility].
--- NOTE | 2018-12-15 17:42 | Consultation-Cardiology ---
HPI-Cardiology Cardiology Consultation: Date of Consultation 12/15/18 Date of Admission Attending Physician America Middleton MD Admitting Physician Jesse Calderon DO Consulting Physician Salomon COOK MD HPI: Time Seen by a Provider: 16:00 Chief Complaint: Shortness of breath this is a 83-year-old lady who I have seen in the office. She presents with worsening shortness of breath. She has history of mechanical mitral valve replacement and is on Coumadin. She also has a dual chamber permanent pacemaker implantation. Her pacemaker is a Medtronic pacemaker. 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 Congestive heart failure. atrial fibrillation on EKG 03/22/2017. stage III chronic kidney disease, TIA. she takes Lasix 40 mg daily, Zaroxolyn 5 mg when necessary, metoprolol 25 mg 2 tablets twice daily, Aldactone 25 mg daily, warfarin. Her last device interrogation was 06/23/2018 which showed a battery longevity of 6.5 years. Atrial impedance 402 ohms, RV impedance 430 ohms, atrial tachycardia/atrial fibrillation burden 29.8 percent. Ventricular pacing 95 percent. Atrial pacing 56 percent. Echocardiogram done on 02/27/2017 showed LVEF of 50 percent with restrictive diastolic pattern. Normal functioning mitral valve prosthesis. Mild aortic stenosis. Elevated PA pressure of 6873 mmHg. carotid ultrasound done 03/07/2015 shows no significant atherosclerotic disease in bilateral carotid system. Review of Systems-Cardiology Review of Systems Constitutional: As described under HPI; No As described under HPI, No no symptoms reported, No chills, No fever, No lightheadedness Eyes: No As described under HPI, No no symptoms reported, No blindness, No blurred vision, No contact lenses, No drainage, No decreased acuity, No foreign body sensation, No pain, No vision change Ears/Nose/Throat: No As described under HPI, No no symptoms reported, No chronic hearing loss, No ear discharge, No ear pain, No nasal drainage, No ulcerations Respiratory: No no symptoms reported; As described under HPI; No As described under HPI, No cough, No orthopnea; shortness of breath; No SOB with excertion Cardiovascular: No no symptoms reported; As described under HPI; No As described under HPI, No chest pain; edema; No irregular heart rate, No lightheadedness, No palpitations Gastrointestinal: No no symptoms reported, No As described under HPI, No abdomen distended, No abdominal pain, No blood streaked bowels, No constipation, No diarrhea, No nausea, No vomiting, No stool coloration changes Genitourinary: No As described under HPI, No burning, No dysuria, No discharge, No frequency, No flank pain, No hematuria, No urgency : Yes : No Skin: No rash, No skin related problems, No ulcerations Psychiatric/Neurological: No anxiety, No depression, No seizure, No focal weakness, No syncope Hematologic: No bleeding abnormalities ZOR-Mqijjv-Ppzsrj Hx Patient Social History Alcohol Use: Denies Use Recreational Drug Use: No Recent Foreign Travel: No Recent Infectious Disease Expo: No Physical Abuse Screen: No Sexual Abuse: No Immunizations Up To Date Date of Pneumonia Vaccine: Oct 31, 2007 Past Medical History PMH As described under Assessment. Family Medical History Family History: Congestive heart failure 19 FATHER Family history: Cardiovascular disease 19 FATHER Family history: Hypertension 19 FATHER Stroke 19 FATHER Allergies and Home Medications Allergies Coded Allergies: oxycodone (Unverified Allergy, Severe, ANAPHYLAXIS, 09/15/13) hydrocortisone (Unverified Allergy, Intermediate, 09/15/13) Home Medications Albuterol Sulfate 2.5 Mg/3 Ml Vial.neb, 2.5 MG NEB Q4H PRN for SHORTNESS OF BREATH, (Reported) Cefuroxime Axetil 250 Mg Tablet, 250 MG PO BID, (Reported) 5 DAY SUPPLY START DATE 12-12-18 PM DOSE Cetirizine HCl 10 Mg Tablet, 10 MG PO DAILY, (Reported) Cholecalciferol (Vitamin D3) 2,000 Unit Capsule, 2,000 UNIT PO DAILY, (Reported) Cholestyramine/Aspartame 4 Gm Powd.pack, 4 GM PO BID, (Reported) Diphenhydramine HCl 25 Mg Capsule, 25 MG PO Q4H PRN for ALLERGIES, (Reported) Fluticasone/Salmeterol 1 Each Blst.w.dev, 1 PUFF IH BID, (Reported) Furosemide 80 Mg Tablet, 40 MG PO DAILY, (Reported) TAKES 1/2 (80MG) TABLET Hydrocodone/Acetaminophen 1 Each Tablet, 1 TAB PO Q4H PRN for PAIN-MODERATE, (Reported) L. Acidophilus/Bulgaricus 1 Each Tab.chew, 1 TAB.CHEW PO QID, (Reported) 5 DAY THERAPY START DATE 12-12-18 PM DOSE Levothyroxine Sodium 112 Mcg Tablet, 112 MCG PO DAILY, (Reported) Metoprolol Tartrate 25 Mg Tablet, 50 MG PO BID, (Reported) TAKES 2 (25MG) TABLETS Montelukast Sodium 10 Mg Tablet, 10 MG PO HS, (Reported) Multivitamin/Iron/Folic Acid 1 Each Tablet, 0.5 TAB PO BID, (Reported) Pantoprazole Sodium 40 Mg Tablet.dr, 40 MG PO DAILY, (Reported) Prednisone 10 Mg Tab, 10 MG PO DAILY, (Reported) Sitagliptin Phosphate 50 Mg Tablet, 50 MG PO DAILY, (Reported) Spironolactone 25 Mg Tablet, 25 MG PO DAILY, (Reported) Sucralfate 1 Gm Tablet, 1 GM PO QID PRN for GASTRITIS, (Reported) Tiotropium [place] 1 Inh Aerp, 1 CAP IH DAILY, (Reported) Warfarin Sodium 1 Mg Tablet, 2 MG PO SuMoTuWeThSa, (Reported) TAKES 2 (1MG) TABLETS Warfarin Sodium 1 Mg Tablet, 1 MG PO Fr, (Reported) [Otc Restless Legs] , 2-3 TAB SL Q4H PRN for RESTLESS LEGS, (Reported) UP TO 6 TIMES DAILY Patient Home Medication List Home Medication List Reviewed: Yes Physical Exam-Cardiology Physical Exam Vital Signs/I&O 12/15/18 12/15/18 12/15/18 12/15/18 13:01 14:22 14:53 15:09 Temp 36.7 Pulse 85 85 Resp 20 B/P (MAP) 149/77 Pulse Ox 95 92 O2 Delivery Nasal Cannula Room Air Nasal Cannula O2 Flow Rate 4.00 3.00 12/15/18 15:52 Temp 36.7 Pulse 96 Resp 22 B/P (MAP) 135/71 Pulse Ox 91 O2 Delivery Nasal Cannula O2 Flow Rate 4.00 Capillary Refill : Constitutional: appears stated age, AAO x 3; No apparent distress; well- developed, well-nourished HEENT: PERRL; No discharge; hearing is well preserved, oral hygience is good; N o ulceration, No xanthelasmas are seen Neck: No carotid bruit; carotid pulses are 2 + bilaterally Respiratory: chest is bilaterally symmetric, lungs clear to auscultation Cardiovascular: regular rate-rhythm, S1 and S2, systolic murmur Gastrointestinal: soft, audible bowel sounds; No spleenomegaly Rectal: deferred Extremities: pedal edema; No clubbing, No cyanosis, No significant edema Neurologic/Psychiatric: no motor/sensory deficits, alert, normal mood/affect, oriented x 3, power is 5/5 both on sides Skin: normal color; No rash, No ulcerations Data Review Labs Laboratory Tests 12/15/18 13:00: White Blood Count 15.1H, Red Blood Count 3.17L, Hemoglobin 10.4L, Hematocrit 33L , Mean Corpuscular Volume 104H, Mean Corpuscular Hemoglobin 33, Mean Corpuscular Hemoglobin Concent 32, Red Cell Distribution Width 14.5, Platelet Count 206, Mean Platelet Volume 10.0, Neutrophils (%) (Auto) 93H, Lymphocytes (%) (Auto) 2L , Monocytes (%) (Auto) 5, Eosinophils (%) (Auto) 1, Basophils (%) (Auto) 0, Neutrophils # (Auto) 14.0H, Lymphocytes # (Auto) 0.3L, Monocytes # (Auto) 0.7, Eosinophils # (Auto) 0.1, Basophils # (Auto) 0.0, Neutrophils % (Manual) 85, Lymphocytes % (Manual) 1, Monocytes % (Manual) 7, Eosinophils % (Manual) 1, Basophils % (Manual) 0, Band Neutrophils 6, Toxic Granulation 1+, Polychromasia SLIGHT, Macrocytosis SLIGHT, Sodium Level 139, Potassium Level 3.7, Chloride Level 97L, Carbon Dioxide Level 33H, Anion Gap 9, Blood Urea Nitrogen 30H, Creatinine 1.15, Estimat Glomerular Filtration Rate 45, BUN/Creatinine Ratio 26, Glucose Level 121H, Calcium Level 9.5, Corrected Calcium 9.8, Phosphorus Level 2.8, Magnesium Level 2.1, Total Bilirubin 1.8H, Aspartate Amino Transf (AST/SGOT) 22, Alanine Aminotransferase (ALT/SGPT) 23, Alkaline Phosphatase 60, Troponin I 0.034H, B-Type Natriuretic Peptide 339.4H, Total Protein 6.1L, Albumin 3.6, Thyroid Stimulating Hormone (TSH) 0.73 12/15/18 13:02: Blood Gas Puncture Site L [place], Blood Gas Patient Temperature 36.7, Arterial Blood pH 7.51H, Arterial Blood Partial Pressure CO2 42, Arterial Blood Partial Pressure O2 72L, Arterial Blood HCO3 33H, Arterial Blood Total CO2 34.4H, Arterial Blood Oxygen Saturation 96, Arterial Blood Base Excess 9.4H, Jose Test YES-POS, Blood Gas Ventilator Setting NO, Blood Gas Inspired Oxygen 3.5L 12/15/18 13:21: Prothrombin Time 28.5H, INR Comment 2.5H, Activated Partial Thromboplast Time 45H, Lactic Acid Level 0.90 12/15/18 16:04: Glucometer 161H A/P-Cardiology Assessment/Admission Diagnosis Acute congestive heart failure, COPD, Mechanical mitral valve on Coumadin, History of TIA, Plan Chronic systolic/diastolic congestive heart failure: Continue diuretics. Follow echocardiogram. Mechanical mitral valve: Last echocardiogram done in 2016 showed normally functioning mitral valve prosthesis. Continue Coumadin with an INR target of 3.0. Chronic atrial fibrillation: Patient is already on Coumadin. History of hypertrophic obstructive cardiomyopathy, status post myectomy. No active issues. Stage III chronic kidney disease, History of TIA. Already on Coumadin. Chronic oral anticoagulation with warfarin. COPD, defer to Dr. Sandra. Thank you for your consultation. Please call me if you have any questions. Malika Cook MD, FACP, FACC, FSCAI, FHRS, CCDS Interventional Cardiology Cardiac Electrophysiology Vascular Medicine and Endovascular Interventions Clinical Quality Measures DVT/VTE Risk/Contraindication: Risk Factor Score Per Nursin RFS Level Per Nursing on Admit: 4+=Very High Salomon COOK MD Dec 15, 2018 17:42
[2018-12-15] MEDS ORDERED: BISACODYL 10 MG SUPP (DULCOLAX) PR PRN (18:45)
[2018-12-15] MEDS ORDERED: POLYETHYLENE GLYCOL 17 GM (MIRALAX) PACK PO PRN (18:45)
[2018-12-15] MEDS ORDERED: diphenhydrAMINE 25 MG TAB (BENADRYL) PO PRN (18:45)
[2018-12-15 19:45] VITALS: BP 151/76
[2018-12-15] MEDS: MONTELUKAST 10 MG (SINGULAIR) TAB PO SCH (20:36)
[2018-12-15] MEDS: CEFDINIR 300 MG (OMNICEF) CAP PO SCH (20:36)
[2018-12-15] MEDS: SENNA W/DOCUSATE (SENOKOT S) TABLET PO SCH (20:37)
[2018-12-15] MEDS: DOCUSATE SODIUM 100 MG (COLACE) CAP PO SCH (20:37)
[2018-12-15] MEDS: MELATONIN 3 MG TABLET PO PRN (20:38)
[2018-12-15] MEDS: meTOprolol TARTRATE 50 MG (LOPRESSOR) TAB PO SCH (20:38)
[2018-12-15] MEDS: rOPINIRole 0.25 MG (REQUIP) TAB PO PRN (20:39)
--- NOTE | 2018-12-15 20:49 | History & Physical-Hospitalist ---
History of Present Illness HPI/Chief Complaint Winnie Marquez is an 83 year old female with PMH HTN, HLD, COPD, AFib, mechanical mitral valve on coumadin, HOCM s/p myectomy, hypothyroidism, who presented with shortness of breath. She has been slowly becoming more short of breath. She uses oxygen at home and has had increased need a baseline. She feels short of breath with no activity. She denies orthopnea and PND. She denies chest pain. She denies weight gain. She feels like her clothes are fitting of the normally do. She has had an increase in lower extremity edema. She reports that she has been taking her medications as prescribed. She denies any fevers, chills, or cough. She is currently being treated for a urinary tract infection. She has been taking her Coumadin as directed. She has testing strips for her INR at home and reports that it has been within the therapeutic range. She has a history of a mitral valve replacement with a mechanical valve and she reports her goal to be 3 to 3.5. Source: patient Exam Limitations: no limitations Date Seen 12/15/18 Time Seen by a Provider: 15:00 Attending Physician Luis Antonio Ulloa MD PCP Jesse Calderon DO Referring Physician Date of Admission Dec 15, 2018 at 12:34 Home Medications & Allergies Home Medications Reviewed patient Home Medication Reconciliation performed by pharmacy medication reconciliations natural resources technician and/or nursing. Patients Allergies have been reviewed. Allergies Allergies Coded Allergies oxycodone (Unverified Allergy, Severe, ANAPHYLAXIS, 09/15/13) hydrocortisone (Unverified Allergy, Intermediate, 09/15/13) Past Rcpaldo-Eqefvq-Czmnel Hx Past Med/Social Hx: Reviewed Nursing Past Med/Soc Hx Patient Social History Alcohol Use: Denies Use Recreational Drug Use: No Physical Abuse Screen: No Sexual Abuse: No Recent Foreign Travel: No Contact w/other who traveled: No Recent Hopitalizations: No Recent Infectious Disease Expo: No Immunizations Up To Date Date of Pneumonia Vaccine: Oct 31, 2007 Seasonal Allergies Seasonal Allergies: No Past Medical History Surgeries: Abdominal, Cardiac, Gallbladder, Hysterectomy Cardiac: High Cholesterol, Hypertension, Valvular Heart Disease Reproductive: Yes (PARTIAL HYSTERECTOMY) Hysterectomy Gastrointestinal: Abdominal Hernia, Gastroesophageal Reflux, Gastrointestinal Bleed, Diverticulosis, Hiatal Hernia, Ulcer, Gall Bladder Disease Musculoskeletal: Scoliosis Endocrine: Hypothyroidsim, Diabetes, Non-Insulin dep HEENT: Cataract Psychosocial: Sleep Difficulties Skin/Integumentary: Eczema, Pruritis Family History Congestive heart failure 19 FATHER Family history: Cardiovascular disease 19 FATHER Family history: Hypertension 19 FATHER Stroke 19 FATHER No Pertinent Family Hx Review of Systems Constitutional: weakness EENTM: no symptoms reported Respiratory: short of breath Cardiovascular: edema Gastrointestinal: no symptoms reported Genitourinary: no symptoms reported Musculoskeletal: no symptoms reported Skin: no symptoms reported Psychiatric/Neurological: No Symptoms Reported Physical Exam Physical Exam Vital Signs Vital Signs - First Documented 12/15/18 13:01 Temp 36.7 Pulse 85 Resp 20 B/P (MAP) 149/77 Pulse Ox 95 O2 Delivery Nasal Cannula O2 Flow Rate 4.00 Capillary Refill : Height, Weight, BMI Height: 5'4.00" Weight: 185lbs. 0.2oz. [id number]; 32.26 BMI Method:Stated General Appearance: No Apparent Distress, WD/WN HEENT: PERRL/EOMI Neck: Normal Inspection, Supple Respiratory: No Accessory Muscle Use, No Respiratory Distress, Crackles (Bibasilar and left lower lobe) Cardiovascular: Other (Mechanical heart sounds, regular rate and rhythm) Gastrointestinal: Normal Bowel Sounds, Non Tender, Soft Extremity: Non Tender, Pedal Edema Neurologic/Psychiatric: Alert, Oriented x3, No Motor/Sensory Deficits Skin: Normal Color, Warm/Dry Lymphatic: No Adenopathy Results Results/Procedures Labs Laboratory Tests 12/15/18 13:00 Patient resulted labs reviewed. Imaging: Reviewed Imaging Report Assessment/Plan Admission Diagnosis Acute exacerbation of congestive heart failure Admission Status: Inpatient Order (span 2 midnights) Reason for Inpatient Admission: Hypertension Hyperlipidemia Mitral valve replacement on Coumadin Hypothyroidism COPD Assessment and Plan Acute on chronic congestive heart failure Acute on chronic hypoxic respiratory failure Obtain TTE Daily weights Fluid restriction 2 L Low-sodium diet FRANKLIN darnell ordered Lasix 80 mg IV daily Cardiology and pulmonology consulted, appreciate recommendations Oxygen supplementation as needed to maintain O2 saturation between 88-92 percent COPD without acute exacerbation MAT protocol Continue Advair Continue montelukast Continue prednisone Hypothyroidism Continue thyroid supplementation Mitral valve replacement on Coumadin Continue Coumadin INR 2.5 on admission Continue to monitor INR UTI Continue cefuroxime Hypertension Hyperlipidemia Continue home meds Diagnosis/Problems Diagnosis/Problems (1) Acute exacerbation of congestive heart failure Status: Acute (2) Acute on chronic respiratory failure with hypoxemia Status: Acute (3) H/O mitral valve replacement with mechanical valve Status: Chronic (4) Anticoagulated on Coumadin Status: Chronic (5) Hypertension Status: Chronic (6) Hyperlipidemia Status: Chronic (7) Hypothyroidism Status: Chronic (8) UTI (urinary tract infection) Status: Acute (9) COPD without exacerbation Status: Chronic Clinical Quality Measures DVT/VTE Risk/Contraindication: Risk Factor Score Per Nursin RFS Level Per Nursing on Admit: 4+=Very High LUIS ANTONIO ULLOA MD Dec 15, 2018 20:49
[2018-12-15 21:35] LABS: BILIRUBIN,URINE NEGATIVE (NEGATIVE); CLARITY,URINE CLEAR; COLOR,URINE YELLOW; GLUCOSE, URINE (UA) NEGATIVE (NEGATIVE); KETONES,URINE NEGATIVE (NEGATIVE); LEUKOCYTE ESTERASE ,URINE 1+ (NEGATIVE); NITRITE,URINE NEGATIVE (NEGATIVE); PH,URINE 6 (5-9); PROTEIN,URINE NEGATIVE (NEGATIVE); UROBILINOGEN,URINE NORMAL (NORMAL)
[2018-12-15 21:48] LABS: BACTERIA,URINE MODERATE /HPF; HYALINE CASTS, URINE RARE /LPF; SQUAMOUS EPITHELIAL CELL,UR RARE /HPF
[2018-12-15] MEDS: RT-ADVAIR HFA 115/21 MCG PER PUFF IH SCH (22:10)
[2018-12-16] VITALS (7 sets, daily range): BP systolic 130–151; BP diastolic 68–76
[2018-12-16] MEDS: RT-ALBUTEROL/IPRATROPIUM 3 ML (DUONEB) VIAL IH SCH ×6 (02:10→21:54)
[2018-12-16 05:17] LABS: BASOPHILS % (AUTO) 0 % (0-10); EOSINOPHILS # (AUTO) 0.2 10^3/uL (0.0-0.3); EOSINOPHILS % (AUTO) 2 % (0-10); HEMATOCRIT 34 % (35-52); HEMOGLOBIN 10.6 G/DL (11.5-16.0); LYMPHOCYTES # (AUTO) 0.4 X 10^3 (1.0-4.0); LYMPHOCYTES % (AUTO) 4 % (12-44); MEAN CORPUSCULAR HEMOGLOBIN 32 PG (25-34); MEAN CORPUSCULAR HGB CONC 31 G/DL (32-36); MEAN CORPUSCULAR VOLUME 103 FL (80-99); MEAN PLATELET VOLUME 10.6 FL (7.4-10.4); MONOCYTES # (AUTO) 0.5 X 10^3 (0.0-1.0); MONOCYTES % (AUTO) 5 % (0-12); NEUTROPHILS # (AUTO) 9.4 X 10^3 (1.8-7.8); NEUTROPHILS % (AUTO) 90 % (42-75); PLATELET COUNT 204 10^3/uL (130-400); RED CELL DISTRIBUTION WIDTH 14.3 % (10.0-14.5); WHITE BLOOD COUNT 10.5 10^3/uL (4.3-11.0)
[2018-12-16 05:29] LABS: INR 2.8 (0.8-1.4); PROTHROMBIN TIME PATIENT 30.4 SEC (12.2-14.7)
[2018-12-16 05:43] LABS: CALCIUM 9.4 MG/DL (8.5-10.1); CREATININE SERUM 1.26 MG/DL (0.60-1.30); MAGNESIUM 2.2 MG/DL (1.6-2.4); PHOSPHORUS 3.1 MG/DL (2.3-4.7); POTASSIUM 3.9 MMOL/L (3.6-5.0)
[2018-12-16] MEDS: FUROSEMIDE 40 MG/4 ML INJ (LASIX) IV SCH (06:01)
[2018-12-16] MEDS: LEVOTHYROXINE 112 MCG (LEVOTHROID) TAB PO SCH (06:01)
[2018-12-16] MEDS: KCL 20 MEQ TAB (K-DUR) PO SCH (06:02)
[2018-12-16] MEDS: predniSONE 10 MG TAB PO SCH (06:02)
[2018-12-16] MEDS: ACETAMINOPHEN 325 MG TABLET PO PRN ×4 (06:17→20:48)
[2018-12-16] MEDS: RT-ADVAIR HFA 115/21 MCG PER PUFF IH SCH ×2 (06:21→18:36)
[2018-12-16] MEDS: CATHETER FLUSH 10 ML SYR IV SCH ×3 (06:48→20:48)
--- NOTE | 2018-12-16 07:49 | Diagnostic Imaging Report ---
CHEST 1 VIEW, AP/PA ONLY Indication: Hypoxia Comparison: 12/15/2018 Findings: Stable enlargement of the cardiac silhouette, pacemaker in place. Bilateral interstitial opacities are similar. Trace bilateral pleural effusions are stable. No pneumothorax. Impression: 1. No change in interstitial pulmonary edema. Dictated by: Dictated on workstation # [id number]
[2018-12-16] MEDS: PANTOPRAZOLE 40 MG (PROTONIX) TAB PO SCH (08:20)
[2018-12-16] MEDS: meTOprolol TARTRATE 50 MG (LOPRESSOR) TAB PO SCH ×2 (08:20→20:47)
[2018-12-16] MEDS: LORATADINE (CLARITIN) 10 MG TAB PO SCH (08:20)
[2018-12-16] MEDS: CEFDINIR 300 MG (OMNICEF) CAP PO SCH ×2 (08:20→20:47)
[2018-12-16] MEDS: SPIRONOLACTONE 25 MG (ALDACTONE) TAB PO SCH (08:20)
[2018-12-16] MEDS: SENNA W/DOCUSATE (SENOKOT S) TABLET PO SCH ×2 (08:21→20:47)
[2018-12-16] MEDS: DOCUSATE SODIUM 100 MG (COLACE) CAP PO SCH ×2 (08:21→20:47)
--- NOTE | 2018-12-16 09:26 | Physical Therapy Daily Note ---
PT Daily Note-Current Subjective Patient is up in recliner and agrees to PT. Continues to c/o SOA Pain Numeric Pain Scale: 0-No Pain Location: No Pain Reported Mental Status Patient Orientation: Normal For Age Attachments: Oxygen (4L NC) Transfers Therapy Code Descriptions/Definitions Functional [place] Measure: 0=Not Assessed/NA 4=Minimal Assistance 1=Total Assistance 5=Supervision or Setup 2=Maximal Assistance 6=Modified [place] 3=Moderate Assistance 7=Complete [place] Therapy Quality Codes: 6 Independent with activity with or without an assistive device 5 Patient requires set up or clean up by helper. Patient completes activity by themselves 4 Supervision or touching assist (CGA). [place] provide cues , steadying assist 3 The helper provides less than half the effort to complete the activity 2 The helper provides more than half the effort to complete the activity 1 Dependent. The helper does all the effort to complete an activity 7 Patient refused to complete or attempt activity 9 The patient did not perform the activity before the current illness or injury 88 Not attempted due to Medical conditions or safety concerns Transfers (B, C, W/C) (FIM): 6 Scootin Sit to/from Stand: 6 Weight Bearing Right Lower Extremity: Right Full Weight Bearing Left Lower Extremity: Left Full Weight Bearing Gait Training Gait (FIM): 6 Distance (FIM): 3=150 ft Distance: 175' Gait Level of Assist: 6 Gait Assistive Device: FWW safe and functional/assist for O2 tank only Exercises Seated Therapy Exercises: Ankle pumps, Long arc quads, Hip flexion Seated Reps: 20 (2 sets with recovery periods due to SOA) Assessment Patient tolerated treatment well and remains up in recliner. O2 4L NC continuous. Noted edema bilateral LE. RN in room PT Alf Goals Internal Grinder Goals PT Alf Goals Time Frame: Dec 24, 2018 Transfers (B,C,W/C) (FIM): 6 Gait (FIM): 6 Gait distance (FIM): 3=150 ft Distance: 150' Gait Level of Assist: 6 Gait Assistive Device: FWW PT Plan Treatment/Plan Treatment Plan: Continue Plan of Care Treatment Plan: Bed Mobility, Education, Functional Activity Autumn, Functional Strength, Gait, Safety, Therapeutic Exercise, Transfers Treatment Duration: Dec 24, 2018 Frequency: 6 times per week Estimated Hrs Per Day: .25 hour per day Patient and/or Family Agrees t: Yes Time/GCodes Time In: 819 Time Out: 842 Total Billed Treatment Time: 23 Total Billed Treatment 1 visit FA 13 min EX 10 min PHILLIP STONE PT Dec 16, 2018 09:26
[2018-12-16] MEDS ORDERED: FUROSEMIDE 40 MG/4 ML INJ (LASIX) IVP NR (09:45)
--- NOTE | 2018-12-16 13:14 | Pulmonary Consultation ---
History of Present Illness History of Present Illness Date of Consultation 12/16/18 13:09 Time Seen by Provider: 13:09 Date of Admission History of Present Illness 83yo with hx of oxygen dependent COPD, Afib, mechanical mitral valve presented as direct admit yesterday secondary to worsening SOB, LE edema, and weakness from my office. She take chronic coumadin therapy secondary to mechanical mitral valve. I am consulted for pulmonary management. Allergies and Home Medications Allergies Coded Allergies: oxycodone (Unverified Allergy, Severe, ANAPHYLAXIS, 09/15/13) hydrocortisone (Unverified Allergy, Intermediate, 09/15/13) Home Medications Albuterol Sulfate 2.5 Mg/3 Ml Vial.neb, 2.5 MG NEB Q4H PRN for SHORTNESS OF BREATH, (Reported) Cefuroxime Axetil 250 Mg Tablet, 250 MG PO BID, (Reported) 5 DAY SUPPLY START DATE 12-12-18 PM DOSE Cetirizine HCl 10 Mg Tablet, 10 MG PO DAILY, (Reported) Cholecalciferol (Vitamin D3) 2,000 Unit Capsule, 2,000 UNIT PO DAILY, (Reported) Cholestyramine/Aspartame 4 Gm Powd.pack, 4 GM PO BID, (Reported) Diphenhydramine HCl 25 Mg Capsule, 25 MG PO Q4H PRN for ALLERGIES, (Reported) Fluticasone/Salmeterol 1 Each Blst.w.dev, 1 PUFF IH BID, (Reported) Furosemide 80 Mg Tablet, 80 MG PO DAILY TAKES 1/2 (80MG) TABLET Prescribed by: LUIS ANTONIO ULLOA on 12/19/18 110 Hydrocodone/Acetaminophen 1 Each Tablet, 1 TAB PO Q4H PRN for PAIN-MODERATE, (Reported) L. Acidophilus/[place] 1 Each Tab.chew, 1 TAB.CHEW PO QID, (Reported) 5 DAY THERAPY START DATE 12-12-18 PM DOSE Levofloxacin 250 Mg Tablet, 250 MG PO DAILY@1100 Prescribed by: LUIS ANTONIO ULLOA on 12/19/18 1101 Levothyroxine Sodium 112 Mcg Tablet, 112 MCG PO DAILY, (Reported) Metoprolol Tartrate 25 Mg Tablet, 50 MG PO BID, (Reported) TAKES 2 (25MG) TABLETS Montelukast Sodium 10 Mg Tablet, 10 MG PO HS, (Reported) Multivitamin/Iron/Folic Acid 1 Each Tablet, 0.5 TAB PO BID, (Reported) Pantoprazole Sodium 40 Mg Tablet.dr, 40 MG PO DAILY, (Reported) Prednisone 10 Mg Tab, 10 MG PO DAILY, (Reported) Sertraline HCl 25 Mg Tablet, 25 MG PO DAILY Prescribed by: LUIS ANTONIO ULLOA on 12/19/18 1101 Sitagliptin Phosphate 50 Mg Tablet, 50 MG PO DAILY, (Reported) Spironolactone 25 Mg Tablet, 25 MG PO DAILY, (Reported) Sucralfate 1 Gm Tablet, 1 GM PO QID PRN for GASTRITIS, (Reported) Tiotropium [place] 1 Inh Aerp, 1 CAP IH DAILY, (Reported) Warfarin Sodium 1 Mg Tablet, 2 MG PO [id number], (Reported) TAKES 2 (1MG) TABLETS Warfarin Sodium 1 Mg Tablet, 1 MG PO Fr, (Reported) [Otc Restless Legs] , 2-3 TAB SL Q4H PRN for RESTLESS LEGS, (Reported) UP TO 6 TIMES DAILY Past Mshkzmp-[id number]-Mvkgyj Hx Past Med/Social Hx: Reviewed Nursing Past Med/Soc Hx Patient Social History Alcohol Use: Denies Use Recreational Drug Use: No Recent Foreign Travel: No Contact w/Someone Who Travel: No Recent Infectious Disease Expo: No Recent Hopitalizations: No Immunizations Up To Date Date of Pneumonia Vaccine: Oct 31, 2007 Seasonal Allergies Seasonal Allergies: No Past Medical History Surgeries: Yes Abdominal, Cardiac, Gallbladder, Hysterectomy Respiratory: Yes Pneumonia, COPD Cardiac: Yes (X 2 OPEN HEART SURGERY FOR HEART VALVE(REPLACED VALVE)) High Cholesterol, Hypertension, Valvular Heart Disease Neurological: Yes Reproductive Disorders: Yes (PARTIAL HYSTERECTOMY) 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 SURGEY, GB REMOVED,HAD TO HAVE 6 PINTS OF BLOOD (EGD TO COUDERIZE)) Abdominal Hernia, Gastroesophageal Reflux, Gastrointestinal Bleed, Diverticulosis, Hiatal Hernia, Ulcer, Gall Bladder Disease Musculoskeletal: Yes Scoliosis Endocrine: Yes Hypothyroidsim, Diabetes, Non-Insulin dep Cataract Cancer: No Psychosocial: Yes Sleep Difficulties Integumentary: Yes Eczema, Pruritis Family Medical History Congestive heart failure 19 FATHER Family history: Cardiovascular disease 19 FATHER Family history: Hypertension 19 FATHER Stroke 19 FATHER No Pertinent Family Hx Review of Systems Time Seen by Provider: 11:26 Constitutional: Weakness, Malaise; No: Fever, Chills, Sweats, Other Eyes: No: Pain, Vision change, Conjunctivae inflammation, Eyelid inflammation, Other, Redness ENT: Nose congestion; No: Ear pain, Ear discharge, Nose pain, Nose discharge, Mouth pain, Mouth swelling, Throat pain, Throat swelling, Other Respiratory: Cough, Dry, Shortness of breath, SOB with excertion, Wheezing; No: Hemoptysis, Pleuritic Pain Cardiovascular: Palpitations, Orthopnea, Paroxysmal Noc. Dyspnea, Edema; No: Chest Pain, Lt Headedness, Other Gastrointestinal: Constipation; No: Nausea, Vomiting, Abdominal Pain, Diarrhea, Melena, Hematochezia, Other Neurological: Weakness Sepsis Event Evaluation Height, Weight, BMI Height: 5'4.00" Weight: 185lbs. 0.2oz. [id number]; 32.26 BMI Method:Stated Exam Exam Vital Signs Date Time Temp Pulse Resp B/P (MAP) Pulse Ox O2 Delivery O2 Flow Rate FiO2 12/16/18 12:28 89 12/16/18 08:00 36.8 107 26 132/71 (91) 94 Nasal Cannula 4.00 12/16/18 08:00 Nasal Cannula 4.00 12/16/18 07:00 95 12/16/18 06:25 Nasal Cannula 4.00 12/16/18 06:23 92 Nasal Cannula 4.00 12/16/18 04:05 36.6 88 17 138/74 96 Nasal Cannula 4.00 12/16/18 02:10 90 Nasal Cannula 4.00 12/16/18 01:00 77 12/16/18 00:28 36.4 97 18 130/71 97 Nasal Cannula 4.00 12/15/18 22:10 Nasal Cannula 4.00 12/15/18 22:08 93 Nasal Cannula 4.00 12/15/18 20:00 Nasal Cannula 4.00 12/15/18 19:45 35.8 106 22 151/76 94 Nasal Cannula 4.00 12/15/18 19:00 92 12/15/18 18:26 92 Nasal Cannula 4.00 12/15/18 15:52 36.7 96 22 135/71 91 Nasal Cannula 4.00 12/15/18 15:09 92 Nasal Cannula 3.00 12/15/18 14:53 Room Air 12/15/18 14:22 85 I & O 12/16/18 07:00 Intake Total 635 ml Output Total 900 ml Balance -265 ml Height & Weight Height: 5'4.00" Weight: 185lbs. 0.2oz. 83.267252gr; 32.26 BMI Method:Stated General Appearance: No Apparent Distress, WD/WN HEENT: PERRL/EOMI Neck: Normal Inspection, Supple Respiratory: No Accessory Muscle Use, No Respiratory Distress, Crackles (Bibasilar and left lower lobe) Cardiovascular: Other (Mechanical heart sounds, regular rate and rhythm) Gastrointestinal: normal bowel sounds, non tender, soft, no organomegaly Extremity: Non Tender, Pedal Edema Neurologic/Psychiatric: Alert, Oriented x3, No Motor/Sensory Deficits Skin: Normal Color, Warm/Dry Lymphatic: No Adenopathy Results Lab Laboratory Tests 12/15/18 13:00 12/16/18 04:19 Assessment/Plan Assessment/Plan Acute CHFAE -Continue Lasix COPD -Duonebs, add advair -Oxygen -Monitor Mechanical mitral valve -Coumadin therapy Deconditiioning -Consider in patient rehab admit Stage III CKD CHRISTI RINCON DO Dec 16, 2018 13:14
--- NOTE | 2018-12-16 13:41 | Occupational Therapy Eval ---
OT Evaluation-General/PLF Medical Diagnosis Admission Date Dec 15, 2018 at 12:34 Medical Diagnosis: CHF exacerbation Onset Date: Dec 15, 2018 Therapy Diagnosis Therapy Diagnosis: weakness, decreased functional mobility and ADL tasks Height/Weight Height (Feet): 5 Height (Inches): 4.00 Weight (Pounds): 185 Weight (Ounces): 0.2 Precautions Precautions/Isolations: Fall Prevention, Standard Precautions Safety Interventions: Bed Exit Alarm Weight Bear Status Weight Bearing Restriction: Weight Bearing/Tolerated Referral Physician: Kane Referral Reason: Activity Tolerance, Self Care, Evaluation/Treatment, Strengthening/ROM Medical History Pertinent Medical History: COPD, DM, Hypothroidism Additional Medical History PMHx: HTN, HLD, COPD, A fib, mitral valve replacement and pacemaker Pt states diagnosis of MS at 54 years of age. Current History Per H&P: "Pt is an 83 year old female with PMH HTN, HLD, COPD, AFib, mechanical mitral valve on coumadin, HOCM s/p myectomy, hypothyroidism, who presented with shortness of breath. She has been slowly becoming more short of breath. She uses oxygen at home and has had increased need a baseline. She feels short of breath with no activity. She denies orthopnea and PND. She denies chest pain. She denies weight gain. She feels like her clothes are fitting of the normally do. She has had an increase in lower extremity edema. She reports that she has been taking her medications as prescribed. She denies any fevers, chills, or cough. She is currently being treated for a urinary tract infection. She has been taking her Coumadin as directed. She has testing strips for her INR at home and reports that it has been within the therapeutic range. She has a history of a mitral valve replacement with a mechanical valve and she reports her goal to be 3 to 3.5." Reviewed History: Yes Social History Home: Assisted Living Current Living Status: Alone Entry Into Home: Level Entry Steps Into Home: 0 Steps Inside Home: 0 ADL-Prior Level of Function Therapy Code Descriptions/Definitions Functional [place] Measure: 0=Not Assessed/NA 4=Minimal Assistance 1=Total Assistance 5=Supervision or Setup 2=Maximal Assistance 6=Modified [place] 3=Moderate Assistance 7=Complete [place] Therapy Quality Codes: 6 Independent with activity with or without an assistive device 5 Patient requires set up or clean up by helper. Patient completes activity by themselves 4 Supervision or touching assist (CGA). [place] provide cues , steadying assist 3 The helper provides less than half the effort to complete the activity 2 The helper provides more than half the effort to complete the activity 1 Dependent. The helper does all the effort to complete an activity 7 Patient refused to complete or attempt activity 9 The patient did not perform the activity before the current illness or injury 88 Not attempted due to Medical conditions or safety concerns Functional Abilities and Goals: Independent: Patient completed the activities by him/herself, with or without an assistive device, with no assistance from a helper. Needed Some Help: Patient needed partial assistance from another person to complete activities. Dependent: A helper completed the activities for the patient. Unknown: Not Applicable: ADL PLOF Comments Pt was IND with ADLs with use of FWW for functional mobility. Self Care: Independent Functional Cognition: Independent DME/Equipment: Bath Chair, Grab Bars DME/Equipment Comments Pt states walk in shower, shower chair, grab bars in shower and near toilet. Occupation: retired Drive Self: No OT Current Status Subjective Pt seen in recliner chair, pt agreeable to OT evaluation session. Pt states pain in bilateral lower legs/ feet due to dimple hose donning and swelling during night. Mental Status/Objective Patient Orientation: Person, Place, Time, Situation, Normal For Age Attachments: IV, Oxygen (3.5 L), Telemetry Current Glasses/Contacts: Yes Hearing Aids: No Dentures/Partials: No Hand Dominance: Right Upper Extremity ROM WFL Upper Extremity Coordination WFL Upper Extremity Sensation Pt states paresthesia in fingertips of BUE. Pt states some neuropathy within toes as well. Upper Extremity Strength BUE: 4-/5 strength Pt unable to complete elevating feet with handle. Nursing notified of pt's lack of abilities to elevate feet as pt was seen with feet down, pt educated on importance of elevation to decrease swelling in BLE. Edema: Nonpitting RLE, Pitting LLE ADL-Treatment Therapy Code Descriptions/Definitions Functional [place] Measure: 0=Not Assessed/NA 4=Minimal Assistance 1=Total Assistance 5=Supervision or Setup 2=Maximal Assistance 6=Modified [place] 3=Moderate Assistance 7=Complete [place] Therapy Quality Codes: 6 Independent with activity with or without an assistive device 5 Patient requires set up or clean up by helper. Patient completes activity by themselves 4 Supervision or touching assist (CGA). [place] provide cues , steadying assist 3 The helper provides less than half the effort to complete the activity 2 The helper provides more than half the effort to complete the activity 1 Dependent. The helper does all the effort to complete an activity 7 Patient refused to complete or attempt activity 9 The patient did not perform the activity before the current illness or injury 88 Not attempted due to Medical conditions or safety concerns Eating (FIM): 6 Grooming (FIM): 5 (s/u for grooming tasks.) Lower Body Dressing (FIM): 5 (s/u to gather socks and shoes, pt able to complete with increased time and rest breaks.) Transfers (B, C, W/C) (FIM): 5 (SBA, noted SOB upon standing.) Other Treatments Pt states she was SOB and very weak upon admit. Pt states she has fallen 3x within 10 weeks, stating doctor recommended assisted living. Pt moved to as sisted living ([facility] in [place]) within the past 2 weeks. Pt states she completes all ADLs IND, has HH PT and nursing, and recieves assist through meals, laundry, and cleaning through assistive living facility. Pt wears 3.5L 02 during day/ night, 4 L during activity due to SOB. Pt able to complete sit to stand with SBA and use of FWW, states she has had difficulty transferring to toilet, and completes grooming and LB dressing in recliner chair. Pt educated on OT services and use of skilled therapy services to increase IND with ADLs in order to return to previous functional level. Pt left with feet elevated in recliner, call light in reach, all needs met. Education OT Patient Education: Correct positioning, Energy conservation, Progress toward Goal/Update tx plan, Purpose of tx/functional activities, Rehab process, Safety issues Teaching Recipient: Patient Teaching Methods: Demonstration, Discussion Response to Teaching: Verbalize Understanding, Return Demonstration OT Short Term Goals Short Term Goals Grooming(FIM): 6 Lower Body Dressing(FIM): 6 1=Demonstrate adherence to instructed precautions during ADL tasks. 2=Patient will verbalize/demonstrate understanding of assistive devices/modifications for ADL. 3=Patient will improve strength/tolerance for activity to enable patient to perform ADL's. OT Senior Living Goals Senior Living Goals Eating (FIM): 7 Grooming(FIM): 6 Bathing(FIM): 5 Upper Body Dressing(FIM): 6 Lower Body Dressing(FIM): 6 Toileting(FIM): 5 Transfers (B,C,W/C) (FIM): 6 Toilet/Commode Transfer(FIM): 6 Tub Transfer(FIM): 5 Shower Transfer(FIM): 5 Additional Goals: 1-Demonstrate ADL Tasks, 2-Verbalize Understanding, 3- ImproveStrength/[place] 1=Demonstrate adherence to instructed precautions during ADL tasks. 2=Patient will verbalize/demonstrate understanding of assistive devices/modifications for ADL. 3=Patient will improve strength/tolerance for activity to enable patient to perform ADL's. OT Education/Plan Problem List/Assessment Assessment: Decreased Activ Tolerance, Decreased UE Strength, Edema, Impaired I ADL's, Impaired Self-Care Skills Discharge Recommendations Plan/Recommendations: Continue POC Therapy Discharge Recommendati: Assisted Living Patient/Family Goals Pt wishes to complete ADL/ IADLs with increased IND with "better breathing." Treatment Plan/Plan of Care Treatment,Training & Education: Yes Patient would benefit from OT for education, treatment and training to promote independence in ADL's, mobility, safety and/or upper extremity function for ADL's. Plan of Care: ADL Retraining, Functional Mobility, Group Exercise/Act as Ind, UE Funct Exercise/Act Frequency: 5 times per week Estimated Hrs Per Day: .25 hour per day Agreement: Yes Rehab Potential: Fair Time/GCodes Start Time: 13:10 Stop Time: 13:24 Total Time Billed (hr/min): 14 Billed Treatment Time 1 EVM (14) HALINA MAYER OTR Dec 16, 2018 13:41
[2018-12-16] MEDS: ENOXAPARIN 40 MG/0.4 ML (LOVENOX) SYR SC SCH (13:49)
--- NOTE | 2018-12-16 14:18 | Progress Note - Hospitalist ---
Subjective HPI/CC On Admission Date Seen by Provider: Dec 16, 2018 Time Seen by Provider: 09:30 shortness of breath Subjective/Events-last exam She continues to have shortness of breath. She does not feel short of breath sitting in her chair. She denies fevers and chills. She denies cough. She did not urinate much with the Lasix yesterday. Focused Exam Lactate Level 12/15/18 13:21: Lactic Acid Level 0.90 Objective Exam Vital Signs Vital Signs Date Time Temp Pulse Resp B/P (MAP) Pulse Ox O2 Delivery O2 Flow Rate FiO2 12/16/18 12:28 89 12/16/18 12:00 36.6 22 147/68 (94) 97 Nasal Cannula 4.00 Capillary Refill : General Appearance: No Apparent Distress, WD/WN HEENT: PERRL/EOMI, Pharynx Normal Neck: Normal Inspection, Supple Respiratory: No Accessory Muscle Use, No Respiratory Distress, Crackles Cardiovascular: Other (Mechanical heart sounds, no murmur, regular rate) Gastrointestinal: Normal Bowel Sounds, Non Tender, Soft Extremity: Pedal Edema Neurologic/Psychiatric: Alert, Oriented x3 Results/Procedures Lab Laboratory Tests 12/16/18 04:19 Patient resulted labs reviewed. Assessment/Plan Assessment and Plan Assess & Plan/Chief Complaint Acute on chronic congestive heart failure Acute on chronic hypoxic respiratory failure Obtain TTE Daily weights Fluid restriction 2 L Low-sodium diet [place] hose removed due to discomfort Increased to Lasix 160 mg this morning Cardiology and pulmonology consulted, appreciate recommendations COPD without acute exacerbation MAT protocol Continue Advair Continue montelukast Continue prednisone Mitral valve replacement on Coumadin Continue Coumadin INR 2.8 today UTI Continue cefuroxime Hypertension Hyperlipidemia Hypothyroidism Continue home meds Diagnosis/Problems Diagnosis/Problems (1) Acute exacerbation of congestive heart failure Status: Acute (2) Acute on chronic respiratory failure with hypoxemia Status: Acute (3) H/O mitral valve replacement with mechanical valve Status: Chronic (4) Anticoagulated on Coumadin Status: Chronic (5) Hypertension Status: Chronic (6) Hyperlipidemia Status: Chronic (7) Hypothyroidism Status: Chronic (8) UTI (urinary tract infection) Status: Acute (9) COPD without exacerbation Status: Chronic Clinical Quality Measures DVT/VTE Risk/Contraindication: Risk Factor Score Per Nursin RFS Level Per Nursing on Admit: 4+=Very High LUIS ANTONIO ULLOA MD Dec 16, 2018 14:17
--- NOTE | 2018-12-16 17:43 | Cardiology Progress Note ---
Cardiology SOAP Progress Note Subjective: Still significantly short of breath. Objective: I&O/Vital Signs 12/17/18 12/17/18 12/17/18 12/17/18 06:11 06:18 07:00 08:00 Pulse 92 Pulse Ox 94 O2 Delivery Nasal Cannula Nasal Cannula Nasal Cannula O2 Flow Rate 4.00 4.00 12/17/18 12/17/18 12/17/18 12/17/18 08:00 10:12 12:00 13:00 Temp 36.4 37.1 Pulse 88 74 95 Resp 18 18 B/P (MAP) 140/73 (95) 133/73 (93) Pulse Ox 99 100 O2 Delivery Nasal Cannula Nasal Cannula Nasal Cannula O2 Flow Rate 4.00 4.00 12/17/18 12/17/18 14:33 16:06 Temp 36.8 Pulse 116 86 Resp 20 B/P (MAP) 141/78 (99) Pulse Ox 96 O2 Delivery Nasal Cannula O2 Flow Rate 4.00 12/17/18 00:00 Intake Total 940 ml Output Total 1000 ml Balance -60 ml Weight (Pounds): 185 Weight (Ounces): 0.2 Weight (Calculated Kilograms): 83.310619 Constitutional: appears stated age, AAO x 3, apparent distress, well-developed, well-nourished Respiratory: respiratory distress, chest is bilaterally symmetric, lungs clear to auscultation Cardiovascular: regular rate-rhythm, S1 and S2, systolic murmur Gastrointestional: soft, audible bowel sounds; No spleenomegaly Extremities: pedal edema; No clubbing, No cyanosis, No significant edema Neurologic/Psychiatric: no motor/sensory deficits, alert, normal mood/affect, oriented x 3, power is 5/5 both on sides Skin: normal color; No rash, No ulcerations Results/Procedures: Labs Laboratory Tests 12/16/18 20:59: Glucometer 132H 12/17/18 04:45: White Blood Count 8.0, Red Blood Count 3.26L, Hemoglobin 10.3L, Hematocrit 34L, Mean Corpuscular Volume 104H, Mean Corpuscular Hemoglobin 32, Mean Corpuscular Hemoglobin Concent 31L, Red Cell Distribution Width 14.6H, Platelet Count 205, Mean Platelet Volume 10.4, Neutrophils (%) (Auto) 85H, Lymphocytes (%) (Auto) 6L , Monocytes (%) (Auto) 6, Eosinophils (%) (Auto) 3, Basophils (%) (Auto) 0, Neutrophils # (Auto) 6.8, Lymphocytes # (Auto) 0.4L, Monocytes # (Auto) 0.5, Eosinophils # (Auto) 0.2, Basophils # (Auto) 0.0, Prothrombin Time 35.0H, INR Comment 3.3H, Sodium Level 140, Potassium Level 4.0, Chloride Level 99, Carbon Dioxide Level 30, Anion Gap 11, Blood Urea Nitrogen 38H, Creatinine 1.45H, Estimat Glomerular Filtration Rate 35, BUN/Creatinine Ratio 26, Glucose Level 108H, Calcium Level 8.9, Phosphorus Level 3.7, Magnesium Level 2.1 12/17/18 11:34: Glucometer 160H 12/17/18 15:57: Glucometer 123H Microbiology 12/15/18 Urine Culture - Preliminary, Resulted Enterobacter cloacae complex Enterobacter cloacae complex#2 Testing In Progress A/P: Assessment/Dx: Acute diastolic congestive heart failure, COPD, Mechanical mitral valve on Coumadin, History of TIA, Plan: Chronic systolic/diastolic congestive heart failure: Continue diuretics. Follow echocardiogram. Mechanical mitral valve: Last echocardiogram done in 2017 showed normally functioning mitral valve prosthesis. Continue Coumadin with an INR target of 3.0. Chronic atrial fibrillation: Patient is already on Coumadin. History of hypertrophic obstructive cardiomyopathy, status post myectomy. No active issues. Stage III chronic kidney disease, History of TIA. Already on Coumadin. Chronic oral anticoagulation with warfarin. COPD, defer to Dr. Sandra. Thank you for your consultation. Please call me if you have any questions. Malika Cook MD, FACP, FACC, FSCAI, FHRS, CCDS Interventional Cardiology Cardiac Electrophysiology Vascular Medicine and Endovascular Interventions Focused Exam Lactate Level 12/15/18 13:21: Lactic Acid Level 0.90 Salomon COOK MD Dec 16, 2018 17:43
[2018-12-16] MEDS: MONTELUKAST 10 MG (SINGULAIR) TAB PO SCH (20:47)
[2018-12-16] MEDS: rOPINIRole 0.25 MG (REQUIP) TAB PO PRN (20:47)
[2018-12-16] MEDS: MELATONIN 3 MG TABLET PO PRN (22:28)
[2018-12-17] VITALS (7 sets, daily range): BP systolic 133–146; BP diastolic 63–80
[2018-12-17] MEDS: RT-ALBUTEROL/IPRATROPIUM 3 ML (DUONEB) VIAL IH SCH ×6 (01:05→21:10)
[2018-12-17 05:26] LABS: BASOPHILS % (AUTO) 0 % (0-10); EOSINOPHILS # (AUTO) 0.2 10^3/uL (0.0-0.3); EOSINOPHILS % (AUTO) 3 % (0-10); HEMATOCRIT 34 % (35-52); HEMOGLOBIN 10.3 G/DL (11.5-16.0); LYMPHOCYTES # (AUTO) 0.4 X 10^3 (1.0-4.0); LYMPHOCYTES % (AUTO) 6 % (12-44); MEAN CORPUSCULAR HEMOGLOBIN 32 PG (25-34); MEAN CORPUSCULAR HGB CONC 31 G/DL (32-36); MEAN CORPUSCULAR VOLUME 104 FL (80-99); MEAN PLATELET VOLUME 10.4 FL (7.4-10.4); MONOCYTES # (AUTO) 0.5 X 10^3 (0.0-1.0); MONOCYTES % (AUTO) 6 % (0-12); NEUTROPHILS # (AUTO) 6.8 X 10^3 (1.8-7.8); NEUTROPHILS % (AUTO) 85 % (42-75); PLATELET COUNT 205 10^3/uL (130-400); RED CELL DISTRIBUTION WIDTH 14.6 % (10.0-14.5)
[2018-12-17 05:35] LABS: INR 3.3 (0.8-1.4)
[2018-12-17 05:43] LABS: CALCIUM 8.9 MG/DL (8.5-10.1); CREATININE SERUM 1.45 MG/DL (0.60-1.30); MAGNESIUM 2.1 MG/DL (1.6-2.4); PHOSPHORUS 3.7 MG/DL (2.3-4.7)
[2018-12-17] MEDS: LEVOTHYROXINE 112 MCG (LEVOTHROID) TAB PO SCH (06:05)
[2018-12-17] MEDS: predniSONE 10 MG TAB PO SCH (06:05)
[2018-12-17] MEDS: KCL 20 MEQ TAB (K-DUR) PO SCH (06:05)
[2018-12-17] MEDS: FUROSEMIDE 40 MG/4 ML INJ (LASIX) IV SCH (06:05)
[2018-12-17] MEDS: CATHETER FLUSH 10 ML SYR IV SCH ×3 (06:09→21:03)
[2018-12-17] MEDS: RT-ADVAIR HFA 115/21 MCG PER PUFF IH SCH ×2 (06:12→18:13)
--- NOTE | 2018-12-17 08:27 | Pulmonary Progress Note ---
ARCADIO BOLIVAR,MED STUDENT 12/17/18 0827: Subjective Date Seen by a Provider: Dec 17, 2018 Time Seen by a Provider: 08:22 Subjective/Events-last exam patient says that she is feeling better but is still SOB on 4L O2. she did say that she had left leg pain and had left leg spasm while a provider was in the room. She has no comments, concerns or questions at this time. ROS admits to SOB, swelling and L leg pain denies fever, chills, nausea, vomiting, stomach pain, numbness, tingling, palpitations, chest pain, cough Sepsis Event Evaluation Height, Weight, BMI Height: 5'4.00" Weight: 179lbs. 0.9oz. 81.848124cc; 32.26 BMI Method:Stated Focused Exam Lactate Level 12/15/18 13:21: Lactic Acid Level 0.90 Exam Exam Vital Signs Date Time Temp Pulse Resp B/P (MAP) Pulse Ox O2 Delivery O2 Flow Rate FiO2 12/17/18 06:18 Nasal Cannula 12/17/18 06:11 94 Nasal Cannula 4.00 12/17/18 04:00 36.6 88 20 144/63 (90) 96 Nasal Cannula 4.00 12/17/18 01:05 95 Nasal Cannula 4.00 12/17/18 01:00 81 12/17/18 00:00 36.8 89 20 144/70 (94) 95 Nasal Cannula 4.00 12/16/18 21:54 95 Nasal Cannula 4.00 12/16/18 20:00 Nasal Cannula 4.00 12/16/18 19:28 35.8 95 18 151/76 (101) 93 Nasal Cannula 4.00 12/16/18 19:00 94 12/16/18 18:46 98 Nasal Cannula 4.00 12/16/18 18:36 97 Nasal Cannula 4.50 12/16/18 16:22 36.3 68 18 136/70 (92) 93 Nasal Cannula 4.00 12/16/18 15:38 36.6 89 97 12/16/18 14:27 97 Nasal Cannula 4.00 12/16/18 12:28 89 12/16/18 12:00 36.6 91 22 147/68 (94) 97 Nasal Cannula 4.00 12/16/18 11:14 94 Nasal Cannula 4.00 I & O 12/17/18 07:00 Intake Total 1040 ml Output Total 1400 ml Balance -360 ml Height & Weight Height: 5'4.00" Weight: 179lbs. 0.9oz. 81.040152eb; 32.26 BMI Method:Stated General Appearance: No Apparent Distress, WD/WN, Obese HEENT: PERRL/EOMI, Pharynx Normal Neck: Normal Inspection, Supple Respiratory: Chest Non Tender, No Accessory Muscle Use, No Respiratory Distress, Crackles Cardiovascular: No JVD, Normal Peripheral Pulses, Irregularly Irregular, Other (Mechanical heart sounds, no murmur, regular rate) Peripheral Pulses: 2+ Radial Pulses (R), 2+ Radial Pulses (L) Extremity: Calf Tenderness, Pedal Edema Neurologic/Psychiatric: Alert, Oriented x3, Normal Mood/Affect Skin: Normal Color, Warm/Dry Lymphatic: No Adenopathy Results Lab Laboratory Tests 12/15/18 13:00 12/16/18 04:19 12/17/18 04:45 Assessment/Plan Assessment/Plan Acute CHFAE -Continue Lasix COPD -Duonebs, add advair -Oxygen -Monitor UTI metabolic alkalosis acute on chronic kidney failure macrocytic anemia Mechanical mitral valve -Coumadin therapy Deconditiioning -Consider in patient rehab admit Stage III CKD hypothyroidism CHRISTI SANDRA DO 12/19/18 1129: Subjective Time Seen by a Provider: 11:27 Subjective/Events-last exam SOB not any better. Worse with exertion. Exam Exam General Appearance: No Apparent Distress, WD/WN HEENT: PERRL/EOMI, Pharynx Normal Neck: Normal Inspection, Supple Respiratory: Chest Non Tender, No Accessory Muscle Use, No Respiratory Distress Cardiovascular: No JVD, Normal Peripheral Pulses, Irregularly Irregular, Other (Mechanical heart sounds, no murmur, regular rate) Extremity: Calf Tenderness, Pedal Edema Neurologic/Psychiatric: Alert, Oriented x3, Normal Mood/Affect Skin: Normal Color, Warm/Dry Lymphatic: No Adenopathy Assessment/Plan Assessment/Plan Acute CHFAE -Continue Lasix COPD -Duonebs, add advair -Oxygen -Monitor UTI metabolic alkalosis acute on chronic kidney failure macrocytic anemia Mechanical mitral valve -Coumadin therapy Deconditiioning -Consider in patient rehab admit Stage III CKD hypothyroidism Supervisory-Addendum Brief Verification & Attestation Participated in pt care: history Personally performed: exam, history Care discussed with: Medical Student Procedures: n/a Verification and Attestation of Medical Student E/M Service A medical student performed and documented this service in my presence. I reviewed and verified all information documented by the medical student and made modifications to such information, when appropriate. I personally performed the physical exam and medical decision making. Christi Sandra, Dec 19, 2018,11:29 ARCADIO BOLIVAR,MED STUDENT Dec 17, 2018 08:27 CHRISTI SANDRA DO Dec 19, 2018 11:29
--- NOTE | 2018-12-17 09:15 | NUR ---
IRF Evaluation Order received to evaluate patient for the ARU. This worker familiar with patient as an informal assessment was completed recently during an appointment at Dr. Sandra's clinic. Subsequently the patient made the decision to remain at [facility], and continue receiving home health therapies provided [place] [facility]. Chart review complete and it appears patient is functioning near baseline; therefore, according to Medicare guidelines, patient will not meet criterion, "Reasonably be expected to actively participate in and benefit significantly from the intensive rehabilitation program." PLOF: Modified Independent - Ambulation, transfers, ADLs. CLOF: Supervision - Ambulation (50ft, FWW), transfers, grooming, and LE dressing. Thank you for this referral.
[2018-12-17] MEDS: SENNA W/DOCUSATE (SENOKOT S) TABLET PO SCH ×2 (09:22→21:03)
[2018-12-17] MEDS: SPIRONOLACTONE 25 MG (ALDACTONE) TAB PO SCH (09:22)
[2018-12-17] MEDS: CEFDINIR 300 MG (OMNICEF) CAP PO SCH ×2 (09:22→21:03)
[2018-12-17] MEDS: meTOprolol TARTRATE 50 MG (LOPRESSOR) TAB PO SCH ×2 (09:22→21:03)
[2018-12-17] MEDS: LORATADINE (CLARITIN) 10 MG TAB PO SCH (09:22)
[2018-12-17] MEDS: DOCUSATE SODIUM 100 MG (COLACE) CAP PO SCH ×2 (09:22→21:03)
[2018-12-17] MEDS: PANTOPRAZOLE 40 MG (PROTONIX) TAB PO SCH (09:22)
--- NOTE | 2018-12-17 09:53 | NUR ---
Pt is [employer]. [employer] provided prayer and Communion.
--- NOTE | 2018-12-17 12:00 | Occupational Ther Daily Note ---
OT Current Status-Daily Note Subjective Pt sitting in chair, agrees to therapy. Pt reports pain in left foot, but does not rate. Mental Status/Objective Therapy Code Descriptions/Definitions Functional [place] Measure: 0=Not Assessed/NA 4=Minimal Assistance 1=Total Assistance 5=Supervision or Setup 2=Maximal Assistance 6=Modified [place] 3=Moderate Assistance 7=Complete [place] Attachments: Oxygen ADL-Treatment Pt donned bilateral socks with set up. Performed sit to stand x3 trials with modified independence. Daughter assisted pt to don robe while standing. Pt declined need to complete toileting, grooming, or bathing at this time. Pt able to ambulate in room with FWW without LOB. Pt states her room at home is similar in size and she normally is independent with mobility and ADLs. Pt returned to chair with needs met after session, daughter present. Lower Body Dressing (FIM): 5 (socks only) OT Short Term Goals Short Term Goals Grooming(FIM): 6 Lower Body Dressing(FIM): 6 1=Demonstrate adherence to instructed precautions during ADL tasks. 2=Patient will verbalize/demonstrate understanding of assistive devices/modifications for ADL. 3=Patient will improve strength/tolerance for activity to enable patient to perform ADL's. OT Alf Goals Four Slide Machine Setter Goals Eating (FIM): 7 Grooming(FIM): 6 Bathing(FIM): 5 Upper Body Dressing(FIM): 6 Lower Body Dressing(FIM): 6 Toileting(FIM): 5 Transfers (B,C,W/C) (FIM): 6 Toilet/Commode Transfer(FIM): 6 Tub Transfer(FIM): 5 Shower Transfer(FIM): 5 Additional Goals: 1-Demonstrate ADL Tasks, 2-Verbalize Understanding, 3- ImproveStrength/Autumn 1=Demonstrate adherence to instructed precautions during ADL tasks. 2=Patient will verbalize/demonstrate understanding of assistive devices/modifications for ADL. 3=Patient will improve strength/tolerance for activity to enable patient to perform ADL's. OT Education/Plan Discharge Recommendations Plan/Recommendations: Continue POC Treatment Plan/Plan of Care Patient would benefit from OT for education, treatment and training to promote independence in ADL's, mobility, safety and/or upper extremity function for ADL's. Plan of Care: ADL Retraining, Functional Mobility, Group Exercise/Act as Ind, UE Funct Exercise/Act Frequency: 5 times per week Estimated Hrs Per Day: .25 hour per day Agreement: Yes Rehab Potential: Fair Time/GCodes Start Time: 11:35 Stop Time: 11:52 Total Time Billed (hr/min): 17 Billed Treatment Time 1 visit, FA(17minutes) ANN HUNG OT Dec 17, 2018 12:00
[2018-12-17] MEDS: ENOXAPARIN 40 MG/0.4 ML (LOVENOX) SYR SC SCH (13:19)
--- NOTE | 2018-12-17 13:53 | Physical Therapy Daily Note ---
PT Daily Note-Current Subjective Patient in recliner pre tx, agrees to PT, has 7/10 pain in left shoulder and foot. Appearance Patient in recliner post tx with nurse call, phone, tray, family in the room. Mental Status Patient Orientation: Person, Place, Situation Attachments: Oxygen Transfers Therapy Code Descriptions/Definitions Functional [place] Measure: 0=Not Assessed/NA 4=Minimal Assistance 1=Total Assistance 5=Supervision or Setup 2=Maximal Assistance 6=Modified [place] 3=Moderate Assistance 7=Complete [place] Therapy Quality Codes: 6 Independent with activity with or without an assistive device 5 Patient requires set up or clean up by helper. Patient completes activity by themselves 4 Supervision or touching assist (CGA). [place] provide cues , steadying assist 3 The helper provides less than half the effort to complete the activity 2 The helper provides more than half the effort to complete the activity 1 Dependent. The helper does all the effort to complete an activity 7 Patient refused to complete or attempt activity 9 The patient did not perform the activity before the current illness or inj ury 88 Not attempted due to Medical conditions or safety concerns Transfers (B, C, W/C) (FIM): 6 Sit to/from Stand: 6 Bed to/from Chair: 6 Weight Bearing Right Lower Extremity: Right Full Weight Bearing Left Lower Extremity: Left Full Weight Bearing Gait Training Gait (FIM): 6 Distance: 200' Gait Level of Assist: 6 Gait Assistive Device: FWW one standing rest break Exercises Seated Therapy Exercises: Ankle pumps, Long arc quads Seated Reps: 15 shoulder circles x10 Treatments LE exercise, transfers, ambulation Assessment Current Status: Fair Progress improving endurance PT Mcc Goals Security Systems Engineer Goals PT Mcc Goals Time Frame: Dec 24, 2018 Transfers (B,C,W/C) (FIM): 6 Gait (FIM): 6 Gait distance (FIM): 3=150 ft Distance: 150' Gait Level of Assist: 6 Gait Assistive Device: FWW PT Plan Problem List Problem List: Activity Tolerance, Functional Strength, Safety, Balance, Gait, Transfer, Bed Mobility Treatment/Plan Treatment Plan: Continue Plan of Care Treatment Plan: Bed Mobility, Education, Functional Activity Autumn, Functional Strength, Gait, Safety, Therapeutic Exercise, Transfers Treatment Duration: Dec 24, 2018 Frequency: 6 times per week Estimated Hrs Per Day: .25 hour per day Patient and/or Family Agrees t: Yes Safety Risks/Education Patient Education: Gait Training, Transfer Techniques, Correct Positioning, Safety Issues Teaching Recipient: Patient Teaching Methods: Demonstration, Discussion Response to Teaching: Reinforcement Needed Time/GCodes Time In: 1338 Time Out: 1349 Total Billed Treatment Time: 11 Total Billed Treatment 1 visit GT 11' ORLIN VIDAL PT Dec 17, 2018 13:53
--- NOTE | 2018-12-17 14:31 | Progress Note - Hospitalist ---
Subjective HPI/CC On Admission Date Seen by Provider: Dec 17, 2018 Time Seen by Provider: 09:00 shortness of breath Subjective/Events-last exam She continues to feel short of breath. She is not having any shortness of breath while resting. She denies any fevers or chills. She denies any cough or sputum production. She has no chest pain. She has no abdominal pain, nausea, vomiting, or diarrhea. Focused Exam Lactate Level 12/15/18 13:21: Lactic Acid Level 0.90 Objective Exam Vital Signs Vital Signs Date Time Temp Pulse Resp B/P (MAP) Pulse Ox O2 Delivery O2 Flow Rate FiO2 12/17/18 12:00 37.1 74 18 133/73 (93) 100 Nasal Cannula 4.00 Capillary Refill : General Appearance: No Apparent Distress, WD/WN, Anxious HEENT: PERRL/EOMI, Pharynx Normal Neck: Normal Inspection, Supple Respiratory: Lungs Clear, Normal Breath Sounds, No Respiratory Distress Cardiovascular: Regular Rate, Rhythm, No Edema, No Murmur Gastrointestinal: Normal Bowel Sounds, Non Tender, Soft Extremity: Non Tender, Pedal Edema Neurologic/Psychiatric: Alert, Oriented x3 Skin: Normal Color, Warm/Dry Lymphatic: No Adenopathy Results/Procedures Lab Laboratory Tests 12/17/18 04:45 Patient resulted labs reviewed. Assessment/Plan Assessment and Plan Assess & Plan/Chief Complaint Acute on chronic congestive heart failure Acute on chronic hypoxic respiratory failure Obtain TTE Daily weights Fluid restriction 2 L Low-sodium diet Lasix 80 mg IV daily Cardiology and pulmonology consulted, appreciate recommendations COPD without acute exacerbation MAT protocol Continue Advair Continue montelukast Continue prednisone Mitral valve replacement on Coumadin Continue Coumadin INR 3.3 today UTI Continue cefuroxime Repeat UA with culture growing Enterobacter Hypertension Hyperlipidemia Hypothyroidism Continue home meds Diagnosis/Problems Diagnosis/Problems (1) Acute exacerbation of congestive heart failure Status: Acute (2) Acute on chronic respiratory failure with hypoxemia Status: Acute (3) H/O mitral valve replacement with mechanical valve Status: Chronic (4) Anticoagulated on Coumadin Status: Chronic (5) Hypertension Status: Chronic (6) Hyperlipidemia Status: Chronic (7) Hypothyroidism Status: Chronic (8) UTI (urinary tract infection) Status: Acute (9) COPD without exacerbation Status: Chronic Clinical Quality Measures DVT/VTE Risk/Contraindication: Risk Factor Score Per Nursin RFS Level Per Nursing on Admit: 4+=Very High LUIS ANTONIO ULLOA MD Dec 17, 2018 14:31
--- NOTE | 2018-12-17 17:32 | Cardiology Progress Note ---
Cardiology SOAP Progress Note Subjective: Still significant shortness of breath. Objective: I&O/Vital Signs 12/17/18 12/17/18 12/17/18 12/17/18 06:11 06:18 07:00 08:00 Pulse 92 Pulse Ox 94 O2 Delivery Nasal Cannula Nasal Cannula Nasal Cannula O2 Flow Rate 4.00 4.00 12/17/18 12/17/18 12/17/18 12/17/18 08:00 10:12 12:00 13:00 Temp 36.4 37.1 Pulse 88 74 95 Resp 18 18 B/P (MAP) 140/73 (95) 133/73 (93) Pulse Ox 99 100 O2 Delivery Nasal Cannula Nasal Cannula Nasal Cannula O2 Flow Rate 4.00 4.00 12/17/18 12/17/18 14:33 16:06 Temp 36.8 Pulse 116 86 Resp 20 B/P (MAP) 141/78 (99) Pulse Ox 96 O2 Delivery Nasal Cannula O2 Flow Rate 4.00 12/17/18 00:00 Intake Total 940 ml Output Total 1000 ml Balance -60 ml Weight (Pounds): 179 Weight (Ounces): 0.9 Weight (Calculated Kilograms): 81.435638 Constitutional: appears stated age, AAO x 3, apparent distress, well-developed, well-nourished Respiratory: respiratory distress, chest is bilaterally symmetric, lungs clear to auscultation Cardiovascular: regular rate-rhythm, S1 and S2, systolic murmur Gastrointestional: soft, audible bowel sounds; No spleenomegaly Extremities: pedal edema; No clubbing, No cyanosis, No significant edema Neurologic/Psychiatric: no motor/sensory deficits, alert, normal mood/affect, oriented x 3, power is 5/5 both on sides Skin: normal color; No rash, No ulcerations Results/Procedures: Labs Laboratory Tests 12/16/18 20:59: Glucometer 132H 12/17/18 04:45: White Blood Count 8.0, Red Blood Count 3.26L, Hemoglobin 10.3L, Hematocrit 34L, Mean Corpuscular Volume 104H, Mean Corpuscular Hemoglobin 32, Mean Corpuscular Hemoglobin Concent 31L, Red Cell Distribution Width 14.6H, Platelet Count 205, Mean Platelet Volume 10.4, Neutrophils (%) (Auto) 85H, Lymphocytes (%) (Auto) 6L , Monocytes (%) (Auto) 6, Eosinophils (%) (Auto) 3, Basophils (%) (Auto) 0, Neutrophils # (Auto) 6.8, Lymphocytes # (Auto) 0.4L, Monocytes # (Auto) 0.5, Eosinophils # (Auto) 0.2, Basophils # (Auto) 0.0, Prothrombin Time 35.0H, INR Comment 3.3H, Sodium Level 140, Potassium Level 4.0, Chloride Level 99, Carbon Dioxide Level 30, Anion Gap 11, Blood Urea Nitrogen 38H, Creatinine 1.45H, Estimat Glomerular Filtration Rate 35, BUN/Creatinine Ratio 26, Glucose Level 108H, Calcium Level 8.9, Phosphorus Level 3.7, Magnesium Level 2.1 12/17/18 11:34: Glucometer 160H 12/17/18 15:57: Glucometer 123H Microbiology 12/15/18 Urine Culture - Preliminary, Resulted Enterobacter cloacae complex Enterobacter cloacae complex#2 Testing In Progress A/P: Assessment/Dx: Acute diastolic congestive heart failure, Severe pulmonary hypertension, Severe tricuspid regurgitation COPD, Mechanical mitral valve on Coumadin, History of TIA, Plan: Chronic systolic/diastolic congestive heart failure: Continue diuretics. Echocardiogram done 12/16/2018 shows normal LV function. Chronic atrial fibrillation therefore diastolic function was not evaluated. Mitral valve prosthesis does not demonstrate significant stenosis. Severe pulmonary hypertension and tricuspid regurgitation. I discussed at length with Dr. Sandra about severe pulmonary hypertension. She is not a candidate for advanced therapies for pulmonary hypertension therefore right heart catheterization may not be recommended. Continue oral anticoagulation as well as Lasix. Since the patient is on oral anticoagulation therapy CT angiography of the chest is not recommended. Mechanical mitral valve: Last echocardiogram done in 2016 showed normally functioning mitral valve prosthesis. Continue Coumadin with an INR target of 3.0. Chronic atrial fibrillation: Patient is already on Coumadin. History of hypertrophic obstructive cardiomyopathy, status post myectomy. No active issues. Stage III chronic kidney disease, History of TIA. Already on Coumadin. Chronic oral anticoagulation with warfarin. COPD, defer to Dr. Sandra. Thank you for your consultation. Please call me if you have any questions. Malika Cook MD, FACP, FACC, FSCAI, FHRS, CCDS Interventional Cardiology Cardiac Electrophysiology Vascular Medicine and Endovascular Interventions Focused Exam Lactate Level 12/15/18 13:21: Lactic Acid Level 0.90 Salomon COOK MD Dec 17, 2018 17:32
[2018-12-17] MEDS: MONTELUKAST 10 MG (SINGULAIR) TAB PO SCH (21:03)
[2018-12-17] MEDS: MELATONIN 3 MG TABLET PO PRN (21:03)
[2018-12-17] MEDS: rOPINIRole 0.25 MG (REQUIP) TAB PO PRN (21:03)
[2018-12-18] MEDS: RT-ALBUTEROL/IPRATROPIUM 3 ML (DUONEB) VIAL IH SCH ×6 (01:03→22:45)
[2018-12-18 04:15] VITALS: BP 134/77
[2018-12-18 06:39] LABS: BASOPHILS % (AUTO) 0 % (0-10); EOSINOPHILS # (AUTO) 0.2 10^3/uL (0.0-0.3); EOSINOPHILS % (AUTO) 3 % (0-10); HEMATOCRIT 32 % (35-52); LYMPHOCYTES # (AUTO) 0.5 X 10^3 (1.0-4.0); LYMPHOCYTES % (AUTO) 6 % (12-44); MEAN CORPUSCULAR HEMOGLOBIN 32 PG (25-34); MEAN CORPUSCULAR HGB CONC 31 G/DL (32-36); MEAN CORPUSCULAR VOLUME 104 FL (80-99); MEAN PLATELET VOLUME 10.7 FL (7.4-10.4); MONOCYTES # (AUTO) 0.7 X 10^3 (0.0-1.0); MONOCYTES % (AUTO) 8 % (0-12); NEUTROPHILS # (AUTO) 7.3 X 10^3 (1.8-7.8); NEUTROPHILS % (AUTO) 83 % (42-75); PLATELET COUNT 202 10^3/uL (130-400); RED CELL DISTRIBUTION WIDTH 14.4 % (10.0-14.5); WHITE BLOOD COUNT 8.8 10^3/uL (4.3-11.0)
[2018-12-18] MEDS: predniSONE 10 MG TAB PO SCH (06:40)
[2018-12-18] MEDS: LEVOTHYROXINE 112 MCG (LEVOTHROID) TAB PO SCH (06:40)
[2018-12-18] MEDS: KCL 20 MEQ TAB (K-DUR) PO SCH (06:40)
[2018-12-18] MEDS: FUROSEMIDE 40 MG/4 ML INJ (LASIX) IV SCH ×2 (06:40→16:31)
[2018-12-18] MEDS: CATHETER FLUSH 10 ML SYR IV SCH ×3 (06:41→21:10)
--- NOTE | 2018-12-18 06:53 | Pulmonary Progress Note ---
Subjective Time Seen by a Provider: 12:23 Subjective/Events-last exam Pt states she still gets SOB with even little exertion. Sepsis Event Evaluation Height, Weight, BMI Height: 5'4.00" Weight: 179lbs. 0.9oz. 81.405104gw; 32.26 BMI Method:Stated Focused Exam Lactate Level 12/15/18 13:21: Lactic Acid Level 0.90 Exam Exam Vital Signs Date Time Temp Pulse Resp B/P (MAP) Pulse Ox O2 Delivery O2 Flow Rate FiO2 12/18/18 04:15 36.1 94 20 134/77 (96) 94 Nasal Cannula 4.00 12/18/18 01:03 93 Nasal Cannula 3.00 12/18/18 01:00 76 12/17/18 23:24 36.8 90 20 134/77 (96) 94 Nasal Cannula 4.00 12/17/18 21:10 98 Nasal Cannula 3.00 12/17/18 20:00 Nasal Cannula 4.00 12/17/18 19:29 37.1 96 20 146/80 (102) 93 Nasal Cannula 4.00 12/17/18 19:00 95 12/17/18 18:18 Nasal Cannula 12/17/18 18:13 95 Nasal Cannula 3.00 12/17/18 16:06 36.8 86 20 141/78 (99) 96 Nasal Cannula 4.00 12/17/18 14:33 116 12/17/18 13:00 95 12/17/18 12:00 37.1 74 18 133/73 (93) 100 Nasal Cannula 4.00 12/17/18 10:12 Nasal Cannula 12/17/18 08:00 36.4 88 18 140/73 (95) 99 Nasal Cannula 4.00 12/17/18 08:00 Nasal Cannula 4.00 12/17/18 07:00 92 I & O 12/18/18 07:00 Intake Total 1160 ml Balance 1160 ml Height & Weight Height: 5'4.00" Weight: 179lbs. 0.9oz. 81.018360rz; 32.26 BMI Method:Stated General Appearance: No Apparent Distress, WD/WN, Anxious HEENT: PERRL/EOMI, Pharynx Normal Neck: Normal Inspection, Supple Respiratory: Lungs Clear, Normal Breath Sounds, No Respiratory Distress Cardiovascular: Regular Rate, Rhythm, No Edema, No Murmur Peripheral Pulses: 2+ Radial Pulses (R), 2+ Radial Pulses (L) Extremity: Non Tender, Pedal Edema Neurologic/Psychiatric: Alert, Oriented x3 Skin: Normal Color, Warm/Dry Lymphatic: No Adenopathy Results Lab Laboratory Tests 12/17/18 04:45 12/18/18 05:47 Assessment/Plan Assessment/Plan Acute CHFAE -Continue Lasix , spironolactone -repeat CXR and BNP COPD -Duonebs, add advair -Oxygen -Monitor Pulmonary HTN group III and Group II -Continue oxygen -Lasix UTI metabolic alkalosis acute on chronic kidney failure macrocytic anemia Mechanical mitral valve, tricuspid regurgitation, Diastolic dysfunction -Coumadin therapy Deconditioning -PT OT Stage III CKD hypothyroidism CHRISTI RINCON DO Dec 18, 2018 06:53
[2018-12-18 06:54] LABS: INR 2.7 (0.8-1.4); PROTHROMBIN TIME PATIENT 29.6 SEC (12.2-14.7)
[2018-12-18 07:02] LABS: CALCIUM 9.6 MG/DL (8.5-10.1); CREATININE SERUM 1.35 MG/DL (0.60-1.30); MAGNESIUM 1.9 MG/DL (1.6-2.4); PHOSPHORUS 3.3 MG/DL (2.3-4.7); POTASSIUM 3.9 MMOL/L (3.6-5.0)
[2018-12-18] MEDS: RT-ADVAIR HFA 115/21 MCG PER PUFF IH SCH ×2 (07:38→18:35)
[2018-12-18 08:00] VITALS: BP 182/78
[2018-12-18] MEDS: meTOprolol TARTRATE 50 MG (LOPRESSOR) TAB PO SCH ×2 (08:25→21:09)
[2018-12-18] MEDS: LORATADINE (CLARITIN) 10 MG TAB PO SCH (08:25)
[2018-12-18] MEDS: PANTOPRAZOLE 40 MG (PROTONIX) TAB PO SCH (08:25)
[2018-12-18] MEDS: SENNA W/DOCUSATE (SENOKOT S) TABLET PO SCH ×2 (08:25→21:10)
[2018-12-18] MEDS: DOCUSATE SODIUM 100 MG (COLACE) CAP PO SCH ×2 (08:25→21:09)
[2018-12-18] MEDS: SPIRONOLACTONE 25 MG (ALDACTONE) TAB PO SCH (08:26)
--- NOTE | 2018-12-18 11:47 | Physical Therapy Daily Note ---
PT Daily Note-Current Subjective Patient continues to c/o SOA, however, O2 3.5L and SAO2 94% at rest. Patient agrees to PT. Mental Status Patient Orientation: Normal For Age Attachments: Oxygen (3.5L NC) Transfers Therapy Code Descriptions/Definitions Functional [place] Measure: 0=Not Assessed/NA 4=Minimal Assistance 1=Total Assistance 5=Supervision or Setup 2=Maximal Assistance 6=Modified [place] 3=Moderate Assistance 7=Complete [place] Therapy Quality Codes: 6 Independent with activity with or without an assistive device 5 Patient requires set up or clean up by helper. Patient completes activity by themselves 4 Supervision or touching assist (CGA). [place] provide cues , steadying assist 3 The helper provides less than half the effort to complete the activity 2 The helper provides more than half the effort to complete the activity 1 Dependent. The helper does all the effort to complete an activity 7 Patient refused to complete or attempt activity 9 The patient did not perform the activity before the current illness or injury 88 Not attempted due to Medical conditions or safety concerns Transfers (B, C, W/C) (FIM): 6 Scootin Sit to/from Stand: 6 Weight Bearing Right Lower Extremity: Right Full Weight Bearing Left Lower Extremity: Left Full Weight Bearing Gait Training Gait (FIM): 6 Distance (FIM): 3=150 ft Distance: 275' Gait Level of Assist: 6 Gait Assistive Device: FWW assist for O2 tank/safe and functional gait sequence with no deviation Exercises Seated Therapy Exercises: Ankle pumps, Long arc quads, Hip flexion Seated Reps: 15 (2 sets) Assessment Patient has increase SOA with minimal activity. PT to increase activity as tolerated by patient. PT Radon Inspector Goals Mcc Goals PT Mcc Goals Time Frame: Dec 24, 2018 Transfers (B,C,W/C) (FIM): 6 Gait (FIM): 6 Gait distance (FIM): 3=150 ft Distance: 150' Gait Level of Assist: 6 Gait Assistive Device: FWW PT Plan Treatment/Plan Treatment Plan: Continue Plan of Care Treatment Plan: Bed Mobility, Education, Functional Activity Autumn, Functional Strength, Gait, Safety, Therapeutic Exercise, Transfers Treatment Duration: Dec 24, 2018 Frequency: 6 times per week Estimated Hrs Per Day: .25 hour per day Patient and/or Family Agrees t: Yes Time/GCodes Time In: 1106 Time Out: 1119 Total Billed Treatment Time: 13 Total Billed Treatment 1 visit FA 13 min PHILLIP STONE PT Dec 18, 2018 11:47
[2018-12-18 12:00] VITALS: BP 147/67
--- NOTE | 2018-12-18 12:09 | Diagnostic Imaging Report ---
INDICATION: Shortness of breath on exertion. TIME OF EXAM: 11:01 AM Correlation is made with prior chest from 12/16/2018. FINDINGS: The heart is enlarged, but stable. Changes of median sternotomy are noted. Cardiac pacemaker remains in place. Congestive changes in both lungs have improved since two days earlier. No significant effusion or pneumothorax is identified. IMPRESSION: Improving congestive changes when compared with examination 2 days earlier. Dictated by: Dictated on workstation # [id number]
--- NOTE | 2018-12-18 13:15 | Occupational Ther Daily Note ---
OT Current Status-Daily Note Subjective Pt seen in recliner chair, daughter present during session. Pt agreeable to OT tx session. Mental Status/Objective Patient Orientation: Normal For Age Therapy Code Descriptions/Definitions Functional [place] Measure: 0=Not Assessed/NA 4=Minimal Assistance 1=Total Assistance 5=Supervision or Setup 2=Maximal Assistance 6=Modified [place] 3=Moderate Assistance 7=Complete [place] Attachments: Oxygen ADL-Treatment Grooming (FIM): 6 (mod I while sitting in chair.) Other Treatment Pt states she had a very busy morning and is very tired. When given options, pt self determines she would like to focus on UE strengthening on this date. pt completes hand cager operator and individual finger exercises with hand sponge, demonstrating knowledge through completion. Pt completes red theraband exercises with handout and demonstration/ cues for correct placement. pt completes 10 reps of 4 exercises, no questions on handout. Pt educated on elevation of legs for decreased swelling. Pt left with legs reclined and call light in reach and all needs met. Education OT Patient Education: Correct positioning, Energy conservation, Exercise program, Home exercise program, Rehab process, Safety issues Teaching Recipient: Patient, Family Teaching Methods: Demonstration, Discussion Response to Teaching: Verbalize Understanding, Return Demonstration OT Short Term Goals Short Term Goals Grooming(FIM): 6 Lower Body Dressing(FIM): 6 1=Demonstrate adherence to instructed precautions during ADL tasks. 2=Patient will verbalize/demonstrate understanding of assistive devices/modifications for ADL. 3=Patient will improve strength/tolerance for activity to enable patient to perform ADL's. OT Senior Care Goals Executive Manager Goals Eating (FIM): 7 Grooming(FIM): 6 Bathing(FIM): 5 Upper Body Dressing(FIM): 6 Lower Body Dressing(FIM): 6 Toileting(FIM): 5 Transfers (B,C,W/C) (FIM): 6 Toilet/Commode Transfer(FIM): 6 Tub Transfer(FIM): 5 Shower Transfer(FIM): 5 Additional Goals: 1-Demonstrate ADL Tasks, 2-Verbalize Understanding, 3- ImproveStrength/Autumn 1=Demonstrate adherence to instructed precautions during ADL tasks. 2=Patient will verbalize/demonstrate understanding of assistive devices/modifications for ADL. 3=Patient will improve strength/tolerance for activity to enable patient to perform ADL's. OT Education/Plan Problem List/Assessment Assessment: Decreased Activ Tolerance, Decreased UE Strength, Edema, Impaired I ADL's, Impaired Self-Care Skills Discharge Recommendations Plan/Recommendations: Continue POC Treatment Plan/Plan of Care Treatment,Training & Education: Yes Patient would benefit from OT for education, treatment and training to promote independence in ADL's, mobility, safety and/or upper extremity function for ADL's. Plan of Care: ADL Retraining, Functional Mobility, Group Exercise/Act as Ind, UE Funct Exercise/Act Frequency: 5 times per week Estimated Hrs Per Day: .25 hour per day Agreement: Yes Rehab Potential: Fair Time/GCodes Start Time: 12:45 Stop Time: 13:06 Total Time Billed (hr/min): 21 Billed Treatment Time 1 EX, ADL (21) HALINA MAYER OTR Dec 18, 2018 13:15
--- NOTE | 2018-12-18 13:20 | NUR ---
Pt is [facility] and reports that Fr Madera was here this morning to anoint and provide Communion.
--- NOTE | 2018-12-18 14:12 | Cardiology Progress Note ---
Cardiology SOAP Progress Note Subjective: Continues to be short of breath. Objective: I&O/Vital Signs 12/19/18 12/19/18 12/19/18 12/19/18 00:00 01:00 04:00 07:00 Temp 36.7 36.8 Pulse 88 93 91 99 Resp 16 14 B/P (MAP) 133/93 (106) 136/78 (97) Pulse Ox 97 95 O2 Delivery Nasal Cannula Nasal Cannula O2 Flow Rate 3.00 3.00 12/19/18 12/19/18 12/19/18 12/19/18 07:21 07:21 08:00 08:32 Temp 36.8 36.2 Pulse 92 92 Resp 18 B/P (MAP) 149/80 (103) Pulse Ox 92 92 92 92 O2 Delivery Nasal Cannula Nasal Cannula Nasal Cannula O2 Flow Rate 3.00 3.00 3.00 12/19/18 10:23 Pulse Ox 96 O2 Delivery Nasal Cannula O2 Flow Rate 3.00 12/19/18 00:00 Intake Total 1175 ml Output Total 1200 ml Balance -25 ml Weight (Pounds): 179 Weight (Ounces): 0.9 Weight (Calculated Kilograms): 81.975028 Constitutional: appears stated age, AAO x 3, apparent distress, well-developed, well-nourished Respiratory: respiratory distress, chest is bilaterally symmetric, lungs clear to auscultation Cardiovascular: regular rate-rhythm, S1 and S2, systolic murmur Gastrointestional: soft, audible bowel sounds; No spleenomegaly Extremities: pedal edema; No clubbing, No cyanosis, No significant edema Neurologic/Psychiatric: no motor/sensory deficits, alert, normal mood/affect, oriented x 3, power is 5/5 both on sides Skin: normal color; No rash, No ulcerations Results/Procedures: Labs Laboratory Tests 12/18/18 11:14: Glucometer 131H 12/18/18 16:09: Glucometer 121H 12/18/18 20:12: Glucometer 102 12/19/18 05:01: White Blood Count 9.5, Red Blood Count 3.30L, Hemoglobin 10.6L, Hematocrit 34L, Mean Corpuscular Volume 103H, Mean Corpuscular Hemoglobin 32, Mean Corpuscular Hemoglobin Concent 31L, Red Cell Distribution Width 14.5, Platelet Count 229, Mean Platelet Volume 10.6H, Neutrophils (%) (Auto) 82H, Lymphocytes (%) (Auto) 6L, Monocytes (%) (Auto) 9, Eosinophils (%) (Auto) 2, Basophils (%) (Auto) 0, Neutrophils # (Auto) 7.8, Lymphocytes # (Auto) 0.5L, Monocytes # (Auto) 0.9, Eosinophils # (Auto) 0.2, Basophils # (Auto) 0.0, Sodium Level 139, Potassium Level 4.1, Chloride Level 96L, Carbon Dioxide Level 30, Anion Gap 13, Blood Urea Nitrogen 31H, Creatinine 1.56H, Estimat Glomerular Filtration Rate 32, BUN/Creatinine Ratio 20, Glucose Level 125H, Calcium Level 9.7, Phosphorus Level 3.7, Magnesium Level 1.9 12/19/18 05:26: Glucometer 132H Microbiology 12/15/18 Urine Culture - Preliminary, Resulted Enterobacter cloacae complex Enterobacter cloacae complex#2 A/P: Assessment/Dx: Acute diastolic congestive heart failure, Severe pulmonary hypertension, Severe tricuspid regurgitation COPD, Mechanical mitral valve on Coumadin, History of TIA, Plan: Chronic systolic/diastolic congestive heart failure: Continue diuretics. Echocardiogram done 12/16/2018 shows normal LV function. Chronic atrial fibrillation therefore diastolic function was not evaluated. Mitral valve prosthesis does not demonstrate significant stenosis. Severe pulmonary hypertension and tricuspid regurgitation. I discussed at length with Dr. Sandra about severe pulmonary hypertension. She is not a candidate for advanced therapies for pulmonary hypertension therefore right heart catheterization may not be recommended. Continue oral anticoagulation as well as Lasix. Since the patient is on oral anticoagulation therapy CT angiography of the chest is not recommended. Mechanical mitral valve: Last echocardiogram done in 2016 showed normally functioning mitral valve prosthesis. Continue Coumadin with an INR target of 3.0. Chronic atrial fibrillation: Patient is already on Coumadin. History of hypertrophic obstructive cardiomyopathy, status post myectomy. No active issues. Stage III chronic kidney disease, History of TIA. Already on Coumadin. Chronic oral anticoagulation with warfarin. COPD, defer to Dr. Sandra. Thank you for your consultation. Please call me if you have any questions. Malika Cook MD, FACP, FACC, FSCAI, FHRS, CCDS Interventional Cardiology Cardiac Electrophysiology Vascular Medicine and Endovascular Interventions Clinical Quality Measures Type of Care: Type of Care: Pallative Care Salomon COOK MD Dec 18, 2018 14:12
[2018-12-18] MEDS: ENOXAPARIN 40 MG/0.4 ML (LOVENOX) SYR SC SCH (14:14)
--- NOTE | 2018-12-18 14:50 | Progress Note - Hospitalist ---
Subjective HPI/CC On Admission Date Seen by Provider: Dec 18, 2018 Time Seen by Provider: 09:00 shortness of breath Subjective/Events-last exam She continues to feel short of breath with minimal exertion. Her foot pain is improving. She denies fevers, chills, and cough. Objective Exam Vital Signs Vital Signs Date Time Temp Pulse Resp B/P (MAP) Pulse Ox O2 Delivery O2 Flow Rate FiO2 12/18/18 12:00 36.6 80 20 147/67 (93) 91 Nasal Cannula 4.00 Capillary Refill : General Appearance: No Apparent Distress, Chronically ill HEENT: PERRL/EOMI, Pharynx Normal Neck: Normal Inspection, Supple Respiratory: Lungs Clear, Normal Breath Sounds, No Respiratory Distress Cardiovascular: Other (Regular rate, irregularly irregular, mechanical heart sounds) Gastrointestinal: Normal Bowel Sounds, Non Tender, Soft Extremity: Normal Inspection, Non Tender, Pedal Edema Neurologic/Psychiatric: Alert, Oriented x3 Skin: Normal Color, Warm/Dry Results/Procedures Lab Laboratory Tests 12/18/18 05:47 Patient resulted labs reviewed. Assessment/Plan Assessment and Plan Assess & Plan/Chief Complaint Acute on chronic congestive heart failure Acute on chronic hypoxic respiratory failure Severe pulmonary hypertension, group 3 Continue Lasix Continue oxygen supplementation Consider palliative consultation COPD without acute exacerbation MAT protocol Continue Advair, montelukast, prednisone Mitral valve replacement on Coumadin Continue Coumadin INR 2.7 today UTI Completed course of cefuroxime Repeat UA with culture growing Enterobacter Begin Levaquin Closely monitor INR Hypertension Hyperlipidemia Hypothyroidism Continue home meds Diagnosis/Problems Diagnosis/Problems (1) Acute exacerbation of congestive heart failure Status: Acute (2) Acute on chronic respiratory failure with hypoxemia Status: Acute (3) H/O mitral valve replacement with mechanical valve Status: Chronic (4) Anticoagulated on Coumadin Status: Chronic (5) Hypertension Status: Chronic (6) Hyperlipidemia Status: Chronic (7) Hypothyroidism Status: Chronic (8) UTI (urinary tract infection) Status: Acute (9) COPD without exacerbation Status: Chronic (10) Pulmonary hypertension Status: Chronic Clinical Quality Measures DVT/VTE Risk/Contraindication: Risk Factor Score Per Nursin RFS Level Per Nursing on Admit: 4+=Very High LUIS ANTONIO ULLOA MD Dec 18, 2018 14:50
[2018-12-18] MEDS ORDERED: LEVOFLOXACIN 250 MG TAB (LEVAQUIN) PO NR (15:00)
[2018-12-18 16:06] VITALS: BP 132/66
--- NOTE | 2018-12-18 16:09 | NUR ---
PALLIATIVE CARE RN in to see patient. She was in the restroom, but the daughter was able to talk tome. I am glad we talked before because she says her mother is having trouble accepting the new diagnosis of Pulmonary Hypertension and that she thinks mentioning hospice might send her into full depression. She inquired if she was still on her Antidepressant that she was put on after 3 years ago I looked and it does not appear that she is. Hospice pamphlets were given and we talked a great deal about the benefit. She will keep this in mind for the future.
[2018-12-18 19:25] VITALS: BP 141/65
[2018-12-18] MEDS: MELATONIN 3 MG TABLET PO PRN (21:09)
[2018-12-18] MEDS: MONTELUKAST 10 MG (SINGULAIR) TAB PO SCH (21:09)
[2018-12-18] MEDS: rOPINIRole 0.25 MG (REQUIP) TAB PO PRN (21:09)
[2018-12-19] VITALS: BP 133/93
[2018-12-19 04:00] VITALS: BP 136/78
[2018-12-19] MEDS: RT-ALBUTEROL/IPRATROPIUM 3 ML (DUONEB) VIAL IH SCH ×2 (05:02→07:21)
[2018-12-19] MEDS: CATHETER FLUSH 10 ML SYR IV SCH (06:11)
[2018-12-19] MEDS: KCL 20 MEQ TAB (K-DUR) PO SCH (06:12)
[2018-12-19] MEDS: predniSONE 10 MG TAB PO SCH (06:12)
[2018-12-19] MEDS: LEVOTHYROXINE 112 MCG (LEVOTHROID) TAB PO SCH (06:12)
[2018-12-19] MEDS: FUROSEMIDE 40 MG/4 ML INJ (LASIX) IV SCH (06:12)
[2018-12-19 06:13] LABS: BASOPHILS % (AUTO) 0 % (0-10); EOSINOPHILS # (AUTO) 0.2 10^3/uL (0.0-0.3); EOSINOPHILS % (AUTO) 2 % (0-10); HEMATOCRIT 34 % (35-52); HEMOGLOBIN 10.6 G/DL (11.5-16.0); LYMPHOCYTES # (AUTO) 0.5 X 10^3 (1.0-4.0); LYMPHOCYTES % (AUTO) 6 % (12-44); MEAN CORPUSCULAR HEMOGLOBIN 32 PG (25-34); MEAN CORPUSCULAR HGB CONC 31 G/DL (32-36); MEAN CORPUSCULAR VOLUME 103 FL (80-99); MEAN PLATELET VOLUME 10.6 FL (7.4-10.4); MONOCYTES # (AUTO) 0.9 X 10^3 (0.0-1.0); MONOCYTES % (AUTO) 9 % (0-12); NEUTROPHILS # (AUTO) 7.8 X 10^3 (1.8-7.8); NEUTROPHILS % (AUTO) 82 % (42-75); PLATELET COUNT 229 10^3/uL (130-400); RED CELL DISTRIBUTION WIDTH 14.5 % (10.0-14.5); WHITE BLOOD COUNT 9.5 10^3/uL (4.3-11.0)
[2018-12-19 06:39] LABS: CALCIUM 9.7 MG/DL (8.5-10.1); CREATININE SERUM 1.56 MG/DL (0.60-1.30); MAGNESIUM 1.9 MG/DL (1.6-2.4); PHOSPHORUS 3.7 MG/DL (2.3-4.7); POTASSIUM 4.1 MMOL/L (3.6-5.0)
[2018-12-19 07:21] VITALS: BP 136/78
[2018-12-19] MEDS: RT-ADVAIR HFA 115/21 MCG PER PUFF IH SCH (07:23)
[2018-12-19 08:00] VITALS: BP 149/80
--- NOTE | 2018-12-19 08:00 | Pulmonary Progress Note ---
ARCADIO BOLIVAR,MED STUDENT 12/19/18 0800: Subjective Date Seen by a Provider: Dec 19, 2018 Time Seen by a Provider: 07:57 Subjective/Events-last exam Patient says that she feels about the same as yesterday. she still feels SOB at 3L. She is curious and anxious about what the plan is moving forward. ROS - admits to SOB and tachycardia - denies fever chills, nausea, vomiting, cough, stomach, pain Sepsis Event Evaluation Height, Weight, BMI Height: 5'4.00" Weight: 179lbs. 0.9oz. 81.705526er; 32.26 BMI Method:Stated Exam Exam Vital Signs Date Time Temp Pulse Resp B/P (MAP) Pulse Ox O2 Delivery O2 Flow Rate FiO2 12/19/18 07:21 36.8 92 92 12/19/18 07:21 92 Nasal Cannula 3.00 12/19/18 04:00 36.8 91 14 136/78 (97) 95 Nasal Cannula 3.00 12/19/18 01:00 93 12/19/18 00:00 36.7 88 16 133/93 (106) 97 Nasal Cannula 3.00 12/18/18 22:46 97 Nasal Cannula 3.00 12/18/18 20:00 98 Nasal Cannula 3.00 12/18/18 19:25 37.2 91 20 141/65 (90) 98 Nasal Cannula 3.00 12/18/18 19:00 90 12/18/18 18:36 95 Nasal Cannula 3.00 12/18/18 16:06 36.9 95 20 132/66 (88) 96 Nasal Cannula 3.00 12/18/18 15:14 94 Nasal Cannula 3.00 12/18/18 13:00 89 12/18/18 12:00 36.6 80 20 147/67 (93) 91 Nasal Cannula 4.00 12/18/18 11:33 93 Nasal Cannula 3.00 12/18/18 08:00 36.7 101 24 182/78 (112) 95 Nasal Cannula 4.00 12/18/18 08:00 93 Room Air 4.00 I & O 12/19/18 07:00 Intake Total 1375 ml Output Total 1200 ml Balance 175 ml Height & Weight Height: 5'4.00" Weight: 179lbs. 0.9oz. 81.825494mk; 32.26 BMI Method:Stated General Appearance: No Apparent Distress, Chronically ill, Obese HEENT: PERRL/EOMI, Pharynx Normal Neck: Normal Inspection, Supple Respiratory: Lungs Clear, Normal Breath Sounds, No Respiratory Distress, Wheezing Cardiovascular: Tachycardia, Other ( irregularly irregular, mechanical heart sounds) Peripheral Pulses: 2+ Radial Pulses (R), 2+ Radial Pulses (L) Extremity: Normal Inspection, Non Tender, No Calf Tenderness, Pedal Edema Neurologic/Psychiatric: Alert, Oriented x3, No Motor/Sensory Deficits, Normal Mood/Affect Skin: Normal Color, Warm/Dry Lymphatic: No Adenopathy Results Lab Laboratory Tests 12/18/18 05:47 12/19/18 05:01 Assessment/Plan Assessment/Plan Acute CHFAE -Continue Lasix , spironolactone -repeat CXR and BNP - on 3L nasal canula - consider pulmonary rehab COPD -Duonebs, add advair -Oxygen -Monitor Pulmonary HTN group III and Group II -Continue oxygen -Lasix UTI - management per primary acute on chronic kidney failure macrocytic anemia - check B12 and folate levels Mechanical mitral valve, tricuspid regurgitation, Diastolic dysfunction -Coumadin therapy Deconditioning -PT OT Stage III CKD hypothyroidism - management per primary CHRISTI SANDRA DO 12/19/18 1126: Subjective Time Seen by a Provider: 11:24 Subjective/Events-last exam SOB is worse with exertion. Exam Exam General Appearance: No Apparent Distress, Chronically ill, Obese HEENT: PERRL/EOMI, Pharynx Normal Neck: Normal Inspection Respiratory: Lungs Clear, Normal Breath Sounds, No Respiratory Distress Cardiovascular: Tachycardia, Other ( irregularly irregular, mechanical heart sounds) Extremity: Normal Inspection, Non Tender, No Calf Tenderness, Pedal Edema Neurologic/Psychiatric: Alert, Oriented x3, No Motor/Sensory Deficits, Normal Mood/Affect Skin: Normal Color, Warm/Dry Lymphatic: No Adenopathy Assessment/Plan Assessment/Plan Acute CHFAE -Continue Lasix , spironolactone -repeat CXR and BNP - on 3L nasal canula - consider pulmonary rehab COPD -Duonebs, add advair -Oxygen -Monitor Pulmonary HTN group III and Group II -Continue oxygen -Lasix UTI - management per primary acute on chronic kidney failure macrocytic anemia - check B12 and folate levels Mechanical mitral valve, tricuspid regurgitation, Diastolic dysfunction -Coumadin therapy Deconditioning -PT OT Stage III CKD hypothyroidism - management per primary PT is ok from pulmonary standpoint for discharge. I will see her in 2-3 wks as an out pt. Supervisory-Addendum Brief Verification & Attestation Participated in pt care: history Personally performed: exam, history Care discussed with: Medical Student Procedures: n/a Verification and Attestation of Medical Student E/M Service A medical student performed and documented this service in my presence. I reviewed and verified all information documented by the medical student and made modifications to such information, when appropriate. I personally performed the physical exam and medical decision making. Christi Sandra, Dec 19, 2018,11:25 ARCADIO BOLIVAR,MED STUDENT Dec 19, 2018 08:00 HCRISTI SANDRA DO Dec 19, 2018 11:26
[2018-12-19] MEDS: LORATADINE (CLARITIN) 10 MG TAB PO SCH (08:18)
[2018-12-19] MEDS: SPIRONOLACTONE 25 MG (ALDACTONE) TAB PO SCH (08:18)
[2018-12-19] MEDS: PANTOPRAZOLE 40 MG (PROTONIX) TAB PO SCH (08:18)
[2018-12-19] MEDS: DOCUSATE SODIUM 100 MG (COLACE) CAP PO SCH (08:19)
[2018-12-19] MEDS: meTOprolol TARTRATE 50 MG (LOPRESSOR) TAB PO SCH (08:19)
[2018-12-19] MEDS: SENNA W/DOCUSATE (SENOKOT S) TABLET PO SCH (08:19)
--- NOTE | 2018-12-19 09:45 | Occupational Ther Daily Note ---
OT Current Status-Daily Note Subjective Pt seen in room, returning to recliner from toileting, agreeable to OT. No pain mentioned. Appearance Alert, cooperative Mental Status/Objective Therapy Code Descriptions/Definitions Functional [place] Measure: 0=Not Assessed/NA 4=Minimal Assistance 1=Total Assistance 5=Supervision or Setup 2=Maximal Assistance 6=Modified [place] 3=Moderate Assistance 7=Complete [place] ADL-Treatment Family transferred pt back to recliner, with no physical assistance but CGA, FWW. Pt required a recovery period and did pursed lip breathing. O2 at 3L. Nursing checked pt sats and it was 98%. Pt completed 20 reps 2 different bilat UE exercise with foam sponge. Also completed 10 reps shoulder horizontal abd/add with red theraband, requiring recovery period after completion. Did 10 reps elbow extension bilat with theraband. All exercises to strengthen arms to help with transfers and ADLs. Pt left up in recliner, all needs met. Education OT Patient Education: Exercise program, Progress toward Goal/Update tx plan, Purpose of tx/functional activities Teaching Recipient: Patient Teaching Methods: Handout, Discussion Response to Teaching: Verbalize Understanding, Return Demonstration OT Short Term Goals Short Term Goals Grooming(FIM): 6 Lower Body Dressing(FIM): 6 1=Demonstrate adherence to instructed precautions during ADL tasks. 2=Patient will verbalize/demonstrate understanding of assistive devices/modif ications for ADL. 3=Patient will improve strength/tolerance for activity to enable patient to perform ADL's. OT Manager Digital Goals Manager Digital Goals Eating (FIM): 7 Grooming(FIM): 6 Bathing(FIM): 5 Upper Body Dressing(FIM): 6 Lower Body Dressing(FIM): 6 Toileting(FIM): 5 Transfers (B,C,W/C) (FIM): 6 Toilet/Commode Transfer(FIM): 6 Tub Transfer(FIM): 5 Shower Transfer(FIM): 5 Additional Goals: 1-Demonstrate ADL Tasks, 2-Verbalize Understanding, 3- ImproveStrength/Autumn 1=Demonstrate adherence to instructed precautions during ADL tasks. 2=Patient will verbalize/demonstrate understanding of assistive devices/modifications for ADL. 3=Patient will improve strength/tolerance for activity to enable patient to perform ADL's. OT Education/Plan Discharge Recommendations Plan/Recommendations: Continue POC Treatment Plan/Plan of Care Patient would benefit from OT for education, treatment and training to promote independence in ADL's, mobility, safety and/or upper extremity function for ADL's. Plan of Care: ADL Retraining, Functional Mobility, Group Exercise/Act as Ind, UE Funct Exercise/Act Frequency: 5 times per week Estimated Hrs Per Day: .25 hour per day Agreement: Yes Rehab Potential: Fair Time/GCodes Start Time: 09:00 Stop Time: 09:15 Total Time Billed (hr/min): 15 Billed Treatment Time visit, 15 minutes exercise SELINA JOHNSON OT Dec 19, 2018 09:45
--- NOTE | 2018-12-19 10:53 | Cardiology Progress Note ---
Cardiology SOAP Progress Note Subjective: Mild shortness of breath. Objective: I&O/Vital Signs 12/19/18 12/19/18 12/19/18 12/19/18 00:00 01:00 04:00 07:00 Temp 36.7 36.8 Pulse 88 93 91 99 Resp 16 14 B/P (MAP) 133/93 (106) 136/78 (97) Pulse Ox 97 95 O2 Delivery Nasal Cannula Nasal Cannula O2 Flow Rate 3.00 3.00 12/19/18 12/19/18 12/19/18 12/19/18 07:21 07:21 08:00 08:32 Temp 36.8 36.2 Pulse 92 92 Resp 18 B/P (MAP) 149/80 (103) Pulse Ox 92 92 92 92 O2 Delivery Nasal Cannula Nasal Cannula Nasal Cannula O2 Flow Rate 3.00 3.00 3.00 12/19/18 10:23 Pulse Ox 96 O2 Delivery Nasal Cannula O2 Flow Rate 3.00 12/19/18 00:00 Intake Total 1175 ml Output Total 1200 ml Balance -25 ml Weight (Pounds): 179 Weight (Ounces): 0.9 Weight (Calculated Kilograms): 81.246460 Constitutional: appears stated age, AAO x 3, well-developed, well-nourished Respiratory: chest is bilaterally symmetric, lungs clear to auscultation Cardiovascular: regular rate-rhythm, S1 and S2, systolic murmur Gastrointestional: soft, audible bowel sounds; No spleenomegaly Extremities: pedal edema; No clubbing, No cyanosis, No significant edema Neurologic/Psychiatric: no motor/sensory deficits, alert, normal mood/affect, oriented x 3, power is 5/5 both on sides Skin: normal color; No rash, No ulcerations Results/Procedures: Labs Laboratory Tests 12/18/18 11:14: Glucometer 131H 12/18/18 16:09: Glucometer 121H 12/18/18 20:12: Glucometer 102 12/19/18 05:01: White Blood Count 9.5, Red Blood Count 3.30L, Hemoglobin 10.6L, Hematocrit 34L, Mean Corpuscular Volume 103H, Mean Corpuscular Hemoglobin 32, Mean Corpuscular Hemoglobin Concent 31L, Red Cell Distribution Width 14.5, Platelet Count 229, Mean Platelet Volume 10.6H, Neutrophils (%) (Auto) 82H, Lymphocytes (%) (Auto) 6L, Monocytes (%) (Auto) 9, Eosinophils (%) (Auto) 2, Basophils (%) (Auto) 0, Ne utrophils # (Auto) 7.8, Lymphocytes # (Auto) 0.5L, Monocytes # (Auto) 0.9, Eosinophils # (Auto) 0.2, Basophils # (Auto) 0.0, Sodium Level 139, Potassium Level 4.1, Chloride Level 96L, Carbon Dioxide Level 30, Anion Gap 13, Blood Urea Nitrogen 31H, Creatinine 1.56H, Estimat Glomerular Filtration Rate 32, BUN/Creatinine Ratio 20, Glucose Level 125H, Calcium Level 9.7, Phosphorus Level 3.7, Magnesium Level 1.9 12/19/18 05:26: Glucometer 132H Microbiology 12/15/18 Urine Culture - Preliminary, Resulted Enterobacter cloacae complex Enterobacter cloacae complex#2 A/P: Assessment/Dx: Acute diastolic congestive heart failure, Severe pulmonary hypertension, Severe tricuspid regurgitation COPD, Mechanical mitral valve on Coumadin, History of TIA, Plan: Chronic systolic/diastolic congestive heart failure: Continue diuretics. Echocardiogram done 12/16/2018 shows normal LV function. Chronic atrial fibrillation therefore diastolic function was not evaluated. Mitral valve prosthesis does not demonstrate significant stenosis. Severe pulmonary hypertension and tricuspid regurgitation. I discussed at length with Dr. Sandra about severe pulmonary hypertension. She is not a candidate for advanced therapies for pulmonary hypertension therefore right heart catheterization may not be recommended. Continue oral ant icoagulation as well as Lasix. Since the patient is on oral anticoagulation therapy CT angiography of the chest is not recommended. Mechanical mitral valve: Last echocardiogram done in 2016 showed normally functioning mitral valve prosthesis. Continue Coumadin with an INR target of 3.0. Chronic atrial fibrillation: Patient is already on Coumadin. History of hypertrophic obstructive cardiomyopathy, status post myectomy. No active issues. Stage III chronic kidney disease, History of TIA. Already on Coumadin. Chronic oral anticoagulation with warfarin. Severe COPD, defer to Dr. Sandra. Thank you for your consultation. Please call me if you have any questions. Malika Cook MD, FACP, FACC, FSCAI, FHRS, CCDS Interventional Cardiology Cardiac Electrophysiology Vascular Medicine and Endovascular Interventions Clinical Quality Measures Type of Care: Type of Care: Pallative Care Salomon COOK MD Dec 19, 2018 10:53
[2018-12-19] MEDS ORDERED: RT-ALBUTEROL/IPRATROPIUM 3 ML (DUONEB) VIAL IH SCH (11:00)
[2018-12-19] MEDS ORDERED: LEVOFLOXACIN 250 MG TAB (LEVAQUIN) PO SCH (11:00)
[2018-12-19] MEDS ORDERED: FURO80TA3 PO (11:01)
[2018-12-19] MEDS ORDERED: SERT25TA PO (11:01)
[2018-12-19] MEDS ORDERED: LEVO250T46 PO (11:01)
--- NOTE | 2018-12-19 11:13 | NUR ---
provided prayer and Communion.
--- NOTE | 2018-12-19 11:17 | Discharge Summary ---
Discharge Summary Reconcile Patient Problems Problems Reviewed?: Yes Instructions for Patient Via [facility], Assessment/Instructions Take medications as prescribed. We increased your Lasix dose to 80 mg daily. We added an antibiotic for your urinary tract infection. We resumed Zoloft. Follow up with your PCP. Follow up with Dr. Sandra and resume pulmonary rehab. Physician to follow Patient: Kvng Discharge Diet for Home: Cardiac Diet Hospital Course Date of Admission: Dec 15, 2018 at 12:34 Admission Diagnosis : Acute on chronic hypoxic respiratory failure Family Physician/Provider: Jesse Calderon DO Date of Discharge: 12/19/18 Discharge Diagnosis: Acute on chronic hypoxic respiratory failure Hospital Course: 83-year-old female with past medical history of hypertension, diastolic heart failure, pulmonary hypertension, mechanical mitral valve replacement on Coumadin, who presented with shortness of breath and was admitted with acute on chronic hypoxic respiratory failure. She was diuresed and her oxygen req uirement to return to baseline. She remained weak throughout her admission. She did work with physical and occupational therapy. She was evaluated by inpatient rehabilitation but deemed to not be a candidate due to poor functional status. She will discharge home with home health as well as physical and occupational therapy. Her Lasix dose has been increased to 80 mg daily. She was restarted on Zoloft. She was evaluated by palliative care during her hospital stay and a discussion was began regarding possible transition to hospice, although no changes were made at this time. She will follow up with her PCP, Dr. Calderon. She will follow up with Dr. Sandra. Labs and Pending Lab Test: Laboratory Tests 12/18/18 11:14: Glucometer 131H 12/18/18 16:09: Glucometer 121H 12/18/18 20:12: Glucometer 102 12/19/18 05:01: White Blood Count 9.5, Red Blood Count 3.30L, Hemoglobin 10.6L, Hematocrit 34L, Mean Corpuscular Volume 103H, Mean Corpuscular Hemoglobin 32, Mean Corpuscular Hemoglobin Concent 31L, Red Cell Distribution Width 14.5, Platelet Count 229, Mean Platelet Volume 10.6H, Neutrophils (%) (Auto) 82H, Lymphocytes (%) (Auto) 6L, Monocytes (%) (Auto) 9, Eosinophils (%) (Auto) 2, Basophils (%) (Auto) 0, Neutrophils # (Auto) 7.8, Lymphocytes # (Auto) 0.5L, Monocytes # (Auto) 0.9, Eosinophils # (Auto) 0.2, Basophils # (Auto) 0.0, Sodium Level 139, Potassium Level 4.1, Chloride Level 96L, Carbon Dioxide Level 30, Anion Gap 13, Blood Urea Nitrogen 31H, Creatinine 1.56H, Estimat Glomerular Filtration Rate 32, BUN/Creatinine Ratio 20, Glucose Level 125H, Calcium Level 9.7, Phosphorus Level 3.7, Magnesium Level 1.9 12/19/18 05:26: Glucometer 132H Microbiology 12/15/18 Urine Culture - Preliminary, Resulted Enterobacter cloacae complex Enterobacter cloacae complex#2 Home Meds Active Zoloft (Sertraline HCl) 25 Mg Tablet 25 Mg PO DAILY 30 Days Levofloxacin 250 Mg Tablet 250 Mg PO DAILY@1100 5 Days Furosemide 80 Mg Tablet 80 Mg PO DAILY 90 Days TAKES 1/2 (80MG) TABLET Reported [Otc Restless Legs] 2-3 Tab SL Q4H PRN UP TO 6 TIMES DAILY Hydrocodone-Acetamin 5-325 mg (Hydrocodone/Acetaminophen) 1 Each Tablet 1 Tab PO Q4H PRN Sucralfate 1 Gm Tablet 1 Gm PO QID PRN Warfarin Sodium 1 Mg Tablet 1 Mg PO FR Warfarin Sodium 1 Mg Tablet 2 Mg PO SUMOTUWETHSA TAKES 2 (1MG) TABLETS Montelukast Sodium 10 Mg Tablet 10 Mg PO HS Prevalite Packet (Cholestyramine/Aspartame) 4 Gm Powd.pack 4 Gm PO BID Januvia (Sitagliptin Phosphate) 50 Mg Tablet 50 Mg PO DAILY Pantoprazole Sodium 40 Mg Tablet.dr 40 Mg PO DAILY Prednisone 10 Mg Tab 10 Mg PO DAILY Metoprolol Tartrate 25 Mg Tablet 50 Mg PO BID TAKES 2 (25MG) TABLETS Cetirizine HCl 10 Mg Tablet 10 Mg PO DAILY Spironolactone 25 Mg Tablet 25 Mg PO DAILY Spiriva (Tiotropium [place]) 1 Inh Aerp 1 Cap IH DAILY Advair 250-50 Diskus (Fluticasone/Salmeterol) 1 Each Blst.w.dev 1 Puff IH BID Levothyroxine Sodium 112 Mcg Tablet 112 Mcg PO DAILY Albuterol Sulfate 2.5 Mg/3 Ml Vial.neb 2.5 Mg NEB Q4H PRN Lactinex Chewable Tablet (L. Acidophilus/Bulgaricus) 1 Each Tab.chew 1 Tab.chew PO QID 5 Days 5 DAY THERAPY START DATE 12-12-18 PM DOSE Cefuroxime (Cefuroxime Axetil) 250 Mg Tablet 250 Mg PO BID 5 Days 5 DAY SUPPLY START DATE 12-12-18 PM DOSE Vitamin D3 (Cholecalciferol (Vitamin D3)) 2,000 Unit Capsule 2,000 Unit PO DAILY Centrum Adults Tablet (Multivitamin/Iron/Folic Acid) 1 Each Tablet 0.5 Tab PO BID Benadryl (Diphenhydramine HCl) 25 Mg Capsule 25 Mg PO Q4H PRN Consulations Pulmonology Patient Allergies: Coded Allergies: oxycodone (Unverified Allergy, Severe, ANAPHYLAXIS, 09/15/13) hydrocortisone (Unverified Allergy, Intermediate, 09/15/13) Height (Feet): 5 Height (Inches): 4.00 Weight (Pounds): 179 Weight (Ounces): 0.9 Home Health Need/Face to Face Date of Face to Face: Dec 19, 2018 Clinical Findings: Generalized weakness and fatigue, Muscle weakness, Shortness of breath I have seen Pt [id number]: Yes Discharged To: Home Diagnosis/Conditions: Chronic hypoxic respiratory failure, severe pulmonary hypertension, COPD, chronic diastolic heart failure Patient is Homebound due to: Muscle weakness, Shortness of breath/distress Homebound Status Due to the above stated illness, injury or surgical procedure (medical condition or diagnosis) and associated clinical findings, the patient is homebound because of his/her inability to leave home except with aid of a supportive device and/or person AND leaving the home requires a considerable and taxing effort or is medically contraindicated. Pt req the following assistanc: Aid of another person, [facility] Nursing Orders Home Health Services Order: Nursing Services, Datastage Consultant-Evaluate & Treat, Physical Therapy-Evaluate & Treat Home Health Infusion Therapy Line Start Date: Dec 15, 2018 Home Health Lab Orders Labs (specify type/freq): INR weekly PT/INR (times/week): 1 May use PT/INR meter: Yes Planned Date for 1st INR: Dec 22, 2018 Goal INR Range: 2.5-3.5 Therapy Orders Therapy Orders: OT (must have SN or PT order), Physical Therapy Therapy Specific Orders: Eval assistive deivces, Teach enviro modifications/safety, Gait training, Increase strength/endurance Certify Stmt I certify that this patient is under my care and that I, a nurse practitioner or a physician; a assistant produce manager working with me, had a face to face encounter that - meets the physician face to face encounter requirements with this patient as dated. Discharge Physical Exam General: Alert, Oriented X3, Cooperative HEENT: Atraumatic, EOMI Lungs: Clear to Auscultation Heart: Regular Rate Abdomen: Normal Bowel Sounds, Soft, No Tenderness Extremities: No Edema, No Tenderness/Swelling Skin: No Rashes Neuro: Normal Gait Psych/Mental Status: Mental Status NL, Mood NL LUIS ANTONIO ULLOA MD Dec 19, 2018 11:17
--- NOTE | 2018-12-19 11:59 | NUR ---
DISCHARGE PLANNING: Patient is discharged today for return to [facility]. Home health will resume with [facility] as she had before. I have spoken to both agencies and to patient and her daughter Jessenia, regarding discharge plan. Long discussion with daughter as follow up to yesterdays POC discssion which included hospice education. She was some confused on the differences in hospice and Plaliative care and where these services were provide. I believe all is good now.
[2018-12-19 12:00] VITALS: BP 154/76
== END 2018-12-19 12:45 | disposition home health service (06) | DRG 291 ==
LOC: 4TH 12:34
PROVIDERS: ADMIT Internal Medicine; ATTEND Internal Medicine
DX: I13.0 Hypertensive heart and chronic kidney disease with heart failure and stage 1 through stage 4 chronic kidney disease, or unspecified chronic kidney disease (principal); I50.43 Acute on chronic combined systolic (congestive) and diastolic (congestive) heart failure; N18.3 Chronic kidney disease, stage 3 (moderate); J44.1 Chronic obstructive pulmonary disease with (acute) exacerbation; J96.21 Acute and chronic respiratory failure with hypoxia; N39.0 Urinary tract infection, site not specified; E87.3 Alkalosis; N17.9 Acute kidney failure, unspecified; I48.2 Chronic atrial fibrillation; E03.9 Hypothyroidism, unspecified; E11.9 Type 2 diabetes mellitus without complications; K21.9 Gastro-esophageal reflux disease without esophagitis; E78.00 Pure hypercholesterolemia, unspecified; K44.9 Diaphragmatic hernia without obstruction or gangrene; K57.90 Diverticulosis of intestine, part unspecified, without perforation or abscess without bleeding; M41.9 Scoliosis, unspecified; D53.9 Nutritional anemia, unspecified; I27.20 Pulmonary hypertension, unspecified; H26.9 Unspecified cataract; I07.1 Rheumatic tricuspid insufficiency; G47.9 Sleep disorder, unspecified; E78.5 Hyperlipidemia, unspecified; Z95.2 Presence of prosthetic heart valve; Z99.81 Dependence on supplemental oxygen; Z79.01 Long term (current) use of anticoagulants; Z86.73 Personal history of transient ischemic attack (TIA), and cerebral infarction without residual deficits; Z95.0 Presence of cardiac pacemaker
CPT/HCPCS: 36415; 36600; 71045; 71046; 80048; 80053; 81000; 82310; 82805; 82962; 83605; 83735; 83880; 84100; 84443; 84484; 85007; 85025; 85027; 85610; 85730; 87077; 87088; 87186; 93306; 94010; 94640; 94760

== ENCOUNTER → 2018-12-15 | Outpatient (CLI) | payer MEDICARE ==
[~2018-12-15] MED LIST changes: +LEVO250T46 PO; +SERT25TA PO
== END ==
LOC: CARD 10:37
PROVIDERS: ATTEND Internal Medicine Interventional Cardiology
DX: I08.2 Rheumatic disorders of both aortic and tricuspid valves (principal); I50.42 Chronic combined systolic (congestive) and diastolic (congestive) heart failure; Z95.2 Presence of prosthetic heart valve
CPT/HCPCS: 93306